=== PATIENT | female | born 1940 | race Caucasian/White ===

== ENCOUNTER → 2017-08-06 08:23 | Outpatient (CLI) | payer MEDICARE, OTHER, SELFPAY ==
--- NOTE | 2017-08-06 08:36 | HPBI_ITS ---
MAMMOGRAPHY - BILATERAL SCREENING REASON FOR EXAM: Female, 76 years old. Routine annual screening examination. PERTINENT HISTORY: History of prior right excisional breast biopsy. TECHNIQUE: Digital bilateral breast dima (3D mammographic acquisition) in the CC and MLO projections. 2-D mediolateral oblique (MLO) and craniocaudad (CC) views of both breasts were obtained. CAD: Full Field Digital Mammography with Computer Added Detection was performed. COMPARISON: Comparison is made with prior study of July 26, 2016 and July 14, 2015. FINDINGS: Breast Composition: The breasts are almost entirely fatty. There are no dominant masses or suspicious calcifications. No other significant abnormalities are identified. There has been no significant change since the prior study. HPBI/SCREENING MAMM (CAD), BILAT IMPRESSION: Stable bilateral screening mammogram. Yearly follow-up mammogram recommended. (A) ASSESSMENT CATEGORY: BIRADS Category 1: Negative. A letter regarding these results will be sent to the patient by the facility within 30 days. Approximately 10% of breast cancers are not detected by mammography. A normal mammogram should not delay biopsy of a clinically suspicious abnormality. [id number] Electronically Signed: Shar Bundy MD at 10:14 EDT Tel [phone], Service support ,
--- NOTE | 2017-08-06 08:53 | BD_ITS ---
STUDY: DUAL ENERGY X-RAY ABSORPTIOMETRY / DXA REASON FOR EXAM: Female, 76 years old. The patient is postmenopausal. No loss of height. TECHNIQUE: Bone Mineral Density (BMD) measurements of lumbar spine and bilateral hips were obtained. COMPARISON: Comparison is made with prior study dated July 14, 2015. FINDINGS: Lumbar Spine (L1-L4): g/cm2 (1.039) / T-score (-1.2) / Z-score (0.6) Findings are suggestive of osteopenia with a moderate fracture risk. Left Femur Total: g/cm2 (0.818) / T-score (-1.5) / Z-score (0.2) Left Femoral Neck: g/cm2 (0.735) / T-score (-2.2) / Z-score (-0.3) Right Femur Total: g/cm2 (0.896) / T-score (-0.9) / Z-score (0.8) Right Femoral Neck: g/cm2 (0.799) / T-score (-1.7) / Z-score (0.2) The T-Scores on the most recent prior examination were: Lumbar Spine (L1-L4): There has been worsening of bone density since the previous examination. Left Femur Total: which represents an improvement of 2.0%. Right Femur Total: which represents an improvement of 5.8%. BD/Dexa Bone Density Study IMPRESSION: The patient is considered osteopenic as outlined below according to World Marvel Organization (WHO) criteria with a moderate fracture risk. There has been improvement of bone density since the previous examination. Reference Information: The T-score is the number of standard deviations above or below the standard which is normal for young adults at their peak bone mineral density. The World Health Organization (WHO) interprets the T-scores as follows: Above -1 Normal bone density Between -1 and -2.5 Osteopenia Equal to / or below -2.5 Osteoporosis As a practical clinical guideline, osteopenia may be graded as follows: Mild -1 through -1.5 Moderate -1.6 through -2.0 Severe -2.1 through -2.4 The Z-score is the number of standard deviations above or below age-matched controls. A Z-score of less than -1.5 would be considered abnormal. References: 1. NIH Osteoporosis and Related Bone Diseases http://www.osteo.org 2. International Society for Clinical Densitometry http://www.iscd.org 3. National Osteoporosis Foundation http://www.nof.org Electronically Signed: Shar Bundy MD at 13:12 EDT Tel [phone], Service support ,
== END ==
PROVIDERS: Family Provider Family Medicine; PCP Family Medicine; Visit Provider Family Medicine
DX: M81.0 Age-related osteoporosis without current pathological fracture (principal); Z12.31 Encounter for screening mammogram for malignant neoplasm of breast
CPT/HCPCS: 77063; 77067; 77080

== ENCOUNTER → 2017-09-18 08:24 | Outpatient (CLI) | payer MEDICARE, OTHER, SELFPAY ==
[2017-09-18 08:31] VITALS: BP 106/66; PULSE 68; RESP 18; TEMP 36.2; BMI 30.2
[2017-09-18] MEDS: Zoledronic Acid 5 MG 100 ML 300 MG IV (08:46)
== END ==
PROVIDERS: Family Provider Family Medicine; PCP Family Medicine; Visit Provider Family Medicine
DX: M81.0 Age-related osteoporosis without current pathological fracture (principal)
CPT/HCPCS: 96365; A4216; J3489

== ENCOUNTER → 2017-10-29 07:58 | Outpatient (CLI) | payer MEDICARE, OTHER, SELFPAY ==
[2017-10-29 12:39] LABS: ALB/GLOB Ratio 0.7 RATIO (0.9-2.4); AST(SGOT) 29 U/L (15-37); Alanine Aminotransfer ALT/SGPT 26 U/L (13-56); Albumin, Serum 3.5 g/dL (3.2-5.0); Alkaline Phosphatase 124 U/L (45-117); Anion Gap 9 (5-15); BUN 16 mg/dL (7-18); BUN/Creat Ratio 18.9 RATIO (10-20); Calcium,Total 9.1 mg/dL (8.5-10.1); Chloride 103 mmol/L (98-107); Creatinine, Serum 0.85 mg/dL (0.55-1.02); EST Glomerular Filtration Rate 70 mL/min (>60); Est Glom Filt Rate - Afr Amer 84 mL/min (>60); Globulin 5.2 g/dL (2.2-4.2); Glucose 82 mg/dL (74-106); Hemoglobin A1c 6.2 % (4.2-6.3); Potassium 3.9 mmol/L (3.5-5.1); Protein, Total 8.7 g/dL (6.4-8.2); Sodium Level 139 mmol/L (136-145); T4 Free Direct 0.98 ng/dL (0.76-1.46); Thyroid Stim Hormone (TSH) 1.93 uIU/mL (0.358-3.74)
[2017-10-30 22:11] LABS: PROEL- A/G Ratio 0.9 (0.7-1.7); PROEL- Albumin 3.7 g/dL (2.9-4.4); PROEL- Alpha-1 Globulin 0.3 g/dL (0.0-0.4); PROEL- Alpha-2 Globulin 1.1 g/dL (0.4-1.0); PROEL- Beta Globulin 1.3 g/dL (0.7-1.3); PROEL- Gamma Globulin 1.5 g/dL (0.4-1.8); PROEL- Globulin, Total 4.1 g/dL (2.2-3.9); PROEL- TOTAL PROTEIN 7.8 g/dL (6.0-8.5)
[2017-10-31 16:09] LABS: PROELU- Albumin, Urine 26.4 % (.); PROELU- Alpha-1-Globulin,Ur 5.3 % (.); PROELU- Alpha-2-Globulin,Ur 11.9 % (.); PROELU- Beta Globulin, Ur 21.5 % (.); PROELU- Gamma Globulin, Ur 34.8 % (.); Total Protein, Ur 5.9 mg/dL (Not Estab.)
== END ==
PROVIDERS: Family Medicine; Visit Provider Family Medicine
DX: R73.03 Prediabetes (principal); E03.9 Hypothyroidism, unspecified; R77.1 Abnormality of globulin
CPT/HCPCS: 36415; 80053; 83036; 84165; 84166; 84439; 84443

== ENCOUNTER → 2018-04-10 06:05 | Outpatient (CLI) | payer MEDICARE, OTHER, SELFPAY ==
[2018-04-10 07:29] LABS: AST(SGOT) 21 U/L (15-37); Alanine Aminotransfer ALT/SGPT 21 U/L (13-56); Albumin, Serum 3.7 g/dL (3.2-5.0); Alkaline Phosphatase 153 U/L (45-117); Bilirubin, Direct 0.14 mg/dL (0.00-0.30); Globulin 5.2 g/dL (2.2-4.2); Protein, Total 8.9 g/dL (6.4-8.2)
[2018-04-10 08:45] LABS: Prothrombin Time (Protime)PT. 13.3 SECONDS (11.7-14.9)
[2018-04-11 11:40] LABS: AFP, Tumor Marker 3.6 ng/mL (0.0-8.3)
== END ==
PROVIDERS: Family Provider Family Medicine; PCP Family Medicine; Referring Provider Internal Medicine Gastroenterology; Visit Provider Internal Medicine Gastroenterology
DX: K74.60 Unspecified cirrhosis of liver (principal)
CPT/HCPCS: 36415; 80076; 82105; 85610

== ENCOUNTER → 2018-08-07 08:27 | Outpatient (CLI) | payer MEDICARE, OTHER, SELFPAY ==
--- NOTE | 2018-08-07 08:31 | BI_ITS ---
MAMMOGRAPHY - BILATERAL SCREENING REASON FOR EXAM: Female, 77 years old. Routine annual screening examination. PERTINENT HISTORY: Non-contributory. Remote right excisional breast biopsy. TECHNIQUE: Digital bilateral breast dima (3D mammographic acquisition) in the CC and MLO projections. 2-D mediolateral oblique (MLO) and craniocaudad (CC) views of both breasts were obtained. CAD: Full Field Digital Mammography with Computer Added Detection was performed. COMPARISON: Comparison is made with prior study dated August 06, 2017 and July 26, 2016. FINDINGS: Breast Composition: The breasts are almost entirely fatty. There are no dominant masses or suspicious calcifications. No other significant abnormalities are identified. There has been no significant change since the prior study. BI/SCREENING MAMM (CAD), BILAT IMPRESSION: Stable bilateral screening mammogram. Yearly follow-up mammogram recommended. (A) ASSESSMENT CATEGORY: BIRADS Category 1: Negative. A letter regarding these results will be sent to the patient by the facility within 30 days. Approximately 10% of breast cancers are not detected by mammography. A normal mammogram should not delay biopsy of a clinically suspicious abnormality. [id number] Electronically Signed: Shar Bundy, at 10:47 EDT , Service support ,
== END ==
PROVIDERS: Family Provider Family Medicine; PCP Family Medicine; Referring Provider Family Medicine; Visit Provider Family Medicine
DX: Z12.31 Encounter for screening mammogram for malignant neoplasm of breast (principal)
CPT/HCPCS: 77063; 77067

== ENCOUNTER → 2018-09-19 07:37 | Outpatient (CLI) | payer MEDICARE, OTHER, SELFPAY ==
[2018-09-19 07:50] VITALS: BP 126/75; PULSE 67; RESP 16; TEMP 36.8; O2SAT 99; BMI 30.7
[2018-09-19] MEDS: Zoledronic Acid 5 MG 100 ML 300 MG IV (07:57)
== END ==
PROVIDERS: Family Provider Family Medicine; PCP Family Medicine; Referring Provider Family Medicine; Visit Provider Family Medicine
DX: M81.0 Age-related osteoporosis without current pathological fracture (principal)
CPT/HCPCS: 96365; A4216; J3489

== ENCOUNTER → 2019-01-29 05:47 | Outpatient (CLI) | payer MEDICARE, OTHER, SELFPAY ==
[2018-09-19 07:50] VITALS: BMI 30.7
[2019-01-29 07:17] LABS: Absolute Lymphocyte Count 2.49 X10^3/uL (0.83-4.51); Absolute Neutrophil Count 5.5 X10^3/uL (2.0-7.7); Basophil# 0.07 X10^3/uL; Basophil% 0.7 % (0-1); Eosinophil# 0.26 X10^3/uL; Eosinophils% 2.8 % (0-5); Hematocrit 43.7 % (37-47); Hemoglobin 14.2 g/dL (12.0-15.0); Lymphocyte # 2.49 X10^3/ul (4.0); Lymphocyte % 26.5 % (19-41); Mean Corp Hgb Conc 32.5 g/dL (32-36); Mean Corpuscular Hgb 30.3 pg (27.0-32.0); Mean Corpuscular Volume 93.2 fL (81-99); Mean Platelet Vol. 10.1 fl (6.2-12.0); Monocyte# 1.05 X10^3/uL; Monocyte% 11.2 % (0-10); NRBC Flagged by Analyzer 0 % (0-5); Neutrophil # 5.48 X10^3/uL (2.7-7.7); Neutrophil % 58.5 % (47-70); Platelet Count 457 K/mm3 (150-450); RBC Distribution Width SD 51.9 fl (35.1-43.9); Red Blood Count 4.69 M/mm3 (4.2-5.4); White Blood Count 9.4 K/mm3 (4.4-11.0)
[2019-01-29 07:54] LABS: Hemoglobin A1c 6.1 % (4.2-6.3)
[2019-01-29 07:59] LABS: ALB/GLOB Ratio 0.7 RATIO (0.9-2.4); AST(SGOT) 20 U/L (15-37); Alanine Aminotransfer ALT/SGPT 19 U/L (13-56); Albumin, Serum 3.5 g/dL (3.2-5.0); Alkaline Phosphatase 137 U/L (45-117); Anion Gap 8 (5-15); BUN 14 mg/dL (7-18); BUN/Creat Ratio 16.3 RATIO (10-20); Bilirubin, Direct 0.14 mg/dL (0.00-0.30); Calcium,Total 9.2 mg/dL (8.5-10.1); Chloride 106 mmol/L (98-107); Cholesterol 158 mg/dL (200); Creatinine, Serum 0.86 mg/dL (0.55-1.02); EST Glomerular Filtration Rate 68 mL/min (>60); Est Glom Filt Rate - Afr Amer 82 mL/min (>60); Free T3 2.4 pg/mL (2.18-3.98); Globulin 4.8 g/dL (2.2-4.2); Glucose 107 mg/dL (74-106); High Density Lipoprotein 53 mg/dL; Potassium 4.1 mmol/L (3.5-5.1); Protein, Total 8.3 g/dL (6.4-8.2); Sodium Level 142 mmol/L (136-145); T4 Free Direct 1.07 ng/dL (0.76-1.46); Thyroid Stim Hormone (TSH) 3.61 uIU/mL (0.358-3.74); Triglycerides 136 mg/dL; Very Low Density Lipoprotein 27 mg/dL (5-40)
[2019-02-01 13:41] LABS: AFP, Tumor Marker 2.8 ng/mL (0.0-8.3)
== END ==
PROVIDERS: Family Provider Family Medicine; PCP Family Medicine; Referring Provider Family Medicine; Visit Provider Family Medicine
DX: R73.03 Prediabetes (principal); E03.9 Hypothyroidism, unspecified; E78.5 Hyperlipidemia, unspecified; Z51.81 Encounter for therapeutic drug level monitoring; K74.5 Biliary cirrhosis, unspecified
CPT/HCPCS: 36415; 80053; 80061; 82105; 82248; 83036; 84439; 84443; 84481; 85025; 85610

== ENCOUNTER → 2019-08-07 05:46 | Outpatient (CLI) | payer MEDICARE, OTHER, SELFPAY ==
[2018-09-19 07:50] VITALS: BMI 30.7
[2019-08-07 06:18] LABS: Absolute Lymphocyte Count 2.23 X10^3/uL (0.83-4.51); Absolute Neutrophil Count 3.9 X10^3/uL (2.0-7.7); Basophil# 0.04 X10^3/uL; Basophil% 0.5 % (0-1); Eosinophil# 0.32 X10^3/uL; Eosinophils% 4.2 % (0-5); Hematocrit 41.7 % (37-47); Hemoglobin 13.5 g/dL (12.0-15.0); Lymphocyte # 2.23 X10^3/ul (4.0); Lymphocyte % 29.6 % (19-41); Mean Corp Hgb Conc 32.4 g/dL (32-36); Mean Corpuscular Volume 92.7 fL (81-99); Mean Platelet Vol. 9.3 fl (6.2-12.0); Monocyte% 13.3 % (0-10); NRBC Flagged by Analyzer 0 % (0-5); Neutrophil # 3.92 X10^3/uL (2.7-7.7); Neutrophil % 52.1 % (47-70); Platelet Count 404 K/mm3 (150-450); RBC Distribution Width CV 15.1 % (11.6-14.6); RBC Distribution Width SD 51.5 fl (35.1-43.9); White Blood Count 7.5 K/mm3 (4.4-11.0)
[2019-08-07 06:32] LABS: International Normalized Ratio 1.1; Prothrombin Time (Protime)PT. 14.1 SECONDS (11.7-14.9)
[2019-08-07 06:42] LABS: ALB/GLOB Ratio 0.8 RATIO (0.9-2.4); AST(SGOT) 20 U/L (15-37); Alanine Aminotransfer ALT/SGPT 17 U/L (13-56); Albumin, Serum 3.5 g/dL (3.2-5.0); Alkaline Phosphatase 124 U/L (45-117); Anion Gap 7 (5-15); BUN 19 mg/dL (7-18); BUN/Creat Ratio 20.2 RATIO (10-20); Bilirubin, Direct 0.15 mg/dL (0.00-0.30); Calcium,Total 9.1 mg/dL (8.5-10.1); Chloride 104 mmol/L (98-107); Cholesterol 170 mg/dL (200); Creatinine, Serum 0.94 mg/dL (0.55-1.02); EST Glomerular Filtration Rate 62 mL/min (>60); Est Glom Filt Rate - Afr Amer 74 mL/min (>60); Free T3 2.8 pg/mL (2.18-3.98); Globulin 4.6 g/dL (2.2-4.2); Glucose 106 mg/dL (74-106); High Density Lipoprotein 54 mg/dL; Potassium 3.7 mmol/L (3.5-5.1); Protein, Total 8.1 g/dL (6.4-8.2); Sodium Level 139 mmol/L (136-145); T4 Free Direct 1.09 ng/dL (0.76-1.46); Thyroid Stim Hormone (TSH) 3.12 uIU/mL (0.358-3.74); Triglycerides 125 mg/dL; Very Low Density Lipoprotein 25 mg/dL (5-40)
[2019-08-07 06:48] LABS: Hemoglobin A1c 6.2 % (4.2-6.3)
[2019-08-08 08:47] LABS: AFP, Tumor Marker 2.9 ng/mL (0.0-8.3)
== END ==
PROVIDERS: PCP Family Medicine; Referring Provider Family Medicine; Visit Provider Family Medicine
DX: R73.03 Prediabetes (principal); K74.5 Biliary cirrhosis, unspecified; E78.5 Hyperlipidemia, unspecified; E03.9 Hypothyroidism, unspecified; R53.83 Other fatigue; Z51.81 Encounter for therapeutic drug level monitoring; R77.1 Abnormality of globulin
CPT/HCPCS: 36415; 80053; 80061; 82105; 82248; 83036; 84439; 84443; 84481; 85025; 85610

== ENCOUNTER → 2019-08-19 10:18 | Outpatient (CLI) | payer MEDICARE, OTHER, SELFPAY ==
[2018-09-19 07:50] VITALS: BMI 30.7
--- NOTE | 2019-08-19 10:22 | BI_ITS ---
MAMMOGRAPHY - BILATERAL SCREENING REASON FOR EXAM: Female, 78 years old. Routine annual screening examination. PERTINENT HISTORY: Non-contributory. TECHNIQUE: Digital bilateral breast valarie (3D mammographic acquisition) in the CC and MLO projections. 2-D mediolateral oblique (MLO) and craniocaudad (CC) views of both breasts were obtained. CAD: Full Field Digital Mammography with Computer Added Detection was performed. COMPARISON: Comparison is made with prior examination dated August 07, 2018. FINDINGS: Breast Composition: The breasts are almost entirely fatty. There are no dominant masses or suspicious calcifications. No other significant abnormalities are identified. There has been no significant change since the prior study. BI/SCREEN MAMM (CAD) W/VALARIE BILAT IMPRESSION: Stable bilateral screening mammogram. Yearly follow-up mammogram recommended. (A) ASSESSMENT CATEGORY: BIRADS Category 1: Negative. A letter regarding these results will be sent to the patient by the facility within 30 days. Approximately 10% of breast cancers are not detected by mammography. A normal mammogram should not delay biopsy of a clinically suspicious abnormality. [id number] Electronically Signed: Shar Bundy, at 14:26 EDT , Service support ,
--- NOTE | 2019-08-19 10:25 | BD_ITS ---
STUDY: DUAL ENERGY X-RAY ABSORPTIOMETRY / DXA REASON FOR EXAM: Female, 78 years old. 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 COMPARISON: Comparison is made with prior study dated August 06, 2017. FINDINGS: Lumbar Spine (L1-L4): g/cm2 (1.059) / T-score (-1.0) / Z-score (0.8) Findings are suggestive of normal bone density with a low fracture risk. Left Femur Total: g/cm2 (0.814) / T-score (-1.5) / Z-score (0.3) Left Femoral Neck: g/cm2 (0.754) / T-score (-2.0) / Z-score (0.0) Right Femur Total: g/cm2 (0.890) / T-score (-0.9) / Z-score (0.8) Right Femoral Neck: g/cm2 (0.816) / T-score (-1.6) / Z-score (0.4) The T-Scores on the most recent prior examination were: Lumbar Spine (L1-L4): There has been improvement of bone density since the previous examination. Left Femur Total: which represents a worsening of 0.5%. Right Femur Total: which represents a worsening of 0.7%. BD/Dexa Bone Density Study IMPRESSION: The patient is considered osteopenic as outlined below according to World Marvel Organization (WHO) criteria with a moderate fracture risk. There has been worsening of bone density since the previous examination. Reference Information: The T-score is the number of standard deviations above or below the standard which is normal for young adults at their peak bone mineral density. The World Health Organization (WHO) interprets the T-scores as follows: Above -1 Normal bone density Between -1 and -2.5 Osteopenia Equal to / or below -2.5 Osteoporosis As a practical clinical guideline, osteopenia may be graded as follows: Mild -1 through -1.5 Moderate -1.6 through -2.0 Severe -2.1 through -2.4 The Z-score is the number of standard deviations above or below age-matched controls. A Z-score of less than -1.5 would be considered abnormal. References: 1. NIH Osteoporosis and Related Bone Diseases http://www.osteo.org 2. International Society for Clinical Densitometry http://www.iscd.org 3. National Osteoporosis Foundation http://www.nof.org Electronically Signed: Shar Bundy, at 11:29 EDT , Service support ,
== END ==
PROVIDERS: PCP Family Medicine; Referring Provider Family Medicine; Visit Provider Family Medicine
DX: Z12.31 Encounter for screening mammogram for malignant neoplasm of breast (principal); M81.0 Age-related osteoporosis without current pathological fracture
CPT/HCPCS: 77063; 77067; 77080

== ENCOUNTER → 2019-09-22 07:41 | Outpatient (CLI) | payer MEDICARE, OTHER, SELFPAY ==
[2018-09-19 07:50] VITALS: BMI 30.7
[2019-09-22 07:49] VITALS: BP 124/80; PULSE 67; RESP 18; TEMP 36; O2SAT 100; BMI 30.4
[2019-09-22] MEDS: 0.9% NaCl Peripheral Flush Adult/Peds IV (08:00)
[2019-09-22] MEDS: 0.9% NaCl IVPB Med Flush (250 mL) 15 ML IV (08:00)
[2019-09-22] MEDS: Zoledronic Acid 5 MG 100 ML 300 MG IV (08:01)
[2019-09-22 08:37] VITALS: BP 109/65; PULSE 61
== END ==
PROVIDERS: PCP Family Medicine; Referring Provider Family Medicine; Visit Provider Family Medicine
DX: M81.0 Age-related osteoporosis without current pathological fracture (principal)
CPT/HCPCS: 96365; J7050; A4216; J3489

== ENCOUNTER → 2019-12-02 10:50 | Outpatient (CLI) | payer MEDICARE, OTHER, SELFPAY ==
[2019-09-22 07:49] VITALS: BMI 30.4
--- NOTE | 2019-12-02 11:00 | RAD_ITS ---
STUDY: X-RAY CHEST REASON FOR EXAM: Female, 79 years old. DYSPNEA TECHNIQUE: 2 views COMPARISON: Prior chest radiograph of 03/31/2010 FINDINGS: The lungs are clear and expanded. There is no demonstrated pleural abnormality. Normal size heart. Normal mediastinum and anastasia. Normal visualized pulmonary arteries. Normal visualized aortic arch and descending thoracic aorta. Normal visualized thoracic spine. Normal visualized ribs, clavicles, and shoulders. There is no demonstrated abnormality of the visualized soft tissue structures of the upper abdomen. RAD/Chest PA and Lateral IMPRESSION: Normal x-ray examination of the chest. Electronically Signed: Geni Davis MD at 17:11 EDT , Service support ,
== END ==
PROVIDERS: PCP Family Medicine; Referring Provider Family Medicine; Visit Provider Family Medicine
DX: R06.00 Dyspnea, unspecified (principal)
CPT/HCPCS: 71046

== ENCOUNTER → 2020-01-14 08:56 | Outpatient (CLI) | payer MEDICARE, OTHER, SELFPAY ==
[2019-09-22 07:49] VITALS: BMI 30.4
--- NOTE | 2020-01-14 13:04 | PFT ---
INTRODUCTION: The patient is a 79-year-old female that presents for pulmonary function studies secondary to a diagnosis of dyspnea. Respiratory therapy reports good patient effort. Bronchodilators were used during testing. INTERPRETATION: Forced expiration spirometry demonstrates no evidence of a large airways obstructive ventilatory defect. There was no significant response to aerosolized bronchodilators. Spirograms are of good quality and plateau normally. The respiratory flow volume loop appears normal. Body plethysmography was performed and reveals lung volumes to be within normal limits. Diffusing capacity by single breath CO is also within normal limits. IMPRESSION: Grossly normal pulmonary function studies.
== END ==
PROVIDERS: PCP Family Medicine; Referring Provider Family Medicine; Visit Provider Family Medicine
DX: R06.00 Dyspnea, unspecified (principal)
CPT/HCPCS: 94060; 94726; 94729

== ENCOUNTER → 2020-01-30 06:57 | Outpatient (CLI) | payer MEDICARE, OTHER, SELFPAY ==
[2019-09-22 07:49] VITALS: BMI 30.4
[2020-01-30 07:50] LABS: Absolute Lymphocyte Count 2.02 X10^3/uL (0.83-4.51); Absolute Neutrophil Count 4.3 X10^3/uL (2.0-7.7); Basophil# 0.07 X10^3/uL; Basophil% 0.9 % (0-1); Eosinophil# 0.23 X10^3/uL; Hematocrit 43.7 % (37-47); Hemoglobin 14.2 g/dL (12.0-15.0); Lymphocyte # 2.02 X10^3/ul (4.0); Lymphocyte % 26.2 % (19-41); Mean Corp Hgb Conc 32.5 g/dL (32-36); Mean Corpuscular Hgb 29.9 pg (27.0-32.0); Mean Platelet Vol. 9.6 fl (6.2-12.0); Monocyte# 1.09 X10^3/uL; Monocyte% 14.1 % (0-10); NRBC Flagged by Analyzer 0 % (0-5); Neutrophil # 4.28 X10^3/uL (2.7-7.7); Neutrophil % 55.5 % (47-70); Platelet Count 465 K/mm3 (150-450); RBC Distribution Width CV 14.7 % (11.6-14.6); RBC Distribution Width SD 50.4 fl (35.1-43.9); Red Blood Count 4.75 M/mm3 (4.2-5.4); White Blood Count 7.7 K/mm3 (4.4-11.0)
[2020-01-30 08:12] LABS: Prothrombin Time (Protime)PT. 12.9 SECONDS (11.7-14.9)
[2020-01-30 08:13] LABS: Partial Thromboplast Time 27.8 Seconds (24.1-36.2)
[2020-01-30 08:30] LABS: AST(SGOT) 19 U/L (15-37); Alanine Aminotransfer ALT/SGPT 21 U/L (13-56); Albumin, Serum 3.8 g/dL (3.2-5.0); Alkaline Phosphatase 132 U/L (45-117); Anion Gap 6 (5-15); BUN 17 mg/dL (7-18); BUN/Creat Ratio 17.5 RATIO (10-20); Bilirubin, Direct 0.17 mg/dL (0.00-0.30); Calcium,Total 9.8 mg/dL (8.5-10.1); Chloride 103 mmol/L (98-107); Cholesterol 197 mg/dL (200); Creatinine, Serum 0.97 mg/dL (0.55-1.02); EST Glomerular Filtration Rate 59 mL/min (>60); Est Glom Filt Rate - Afr Amer 71 mL/min (>60); Free T3 2.5 pg/mL (2.18-3.98); Globulin 5.2 g/dL (2.2-4.2); Glucose 104 mg/dL (74-106); High Density Lipoprotein 62 mg/dL; Potassium 4.1 mmol/L (3.5-5.1); Sodium Level 138 mmol/L (136-145); T4 Free Direct 1.09 ng/dL (0.76-1.46); Triglycerides 108 mg/dL; Very Low Density Lipoprotein 22 mg/dL (5-40)
== END ==
PROVIDERS: PCP Family Medicine; Referring Provider Family Medicine; Visit Provider Family Medicine
DX: K74.5 Biliary cirrhosis, unspecified (principal); R73.03 Prediabetes; E03.9 Hypothyroidism, unspecified; E78.5 Hyperlipidemia, unspecified; Z51.81 Encounter for therapeutic drug level monitoring
CPT/HCPCS: 36415; 80048; 80061; 80076; 82105; 83036; 84439; 84443; 84481; 85025; 85610; 85730

== ENCOUNTER → 2020-08-01 06:01 | Outpatient (CLI) | payer MEDICARE, OTHER, SELFPAY ==
[2019-09-22 07:49] VITALS: BMI 30.4
[2020-08-01 07:01] LABS: Absolute Lymphocyte Count 2.21 X10^3/uL (0.83-4.51); Basophil# 0.08 X10^3/uL; Basophil% 1.1 % (0-1); Eosinophil# 0.35 X10^3/uL; Eosinophils% 4.6 % (0-5); Hematocrit 45.9 % (37-47); Hemoglobin 14.8 g/dL (12.0-15.0); Lymphocyte # 2.21 X10^3/ul (4.0); Lymphocyte % 29.3 % (19-41); Mean Corp Hgb Conc 32.2 g/dL (32-36); Mean Corpuscular Volume 92.9 fL (81-99); Mean Platelet Vol. 10.2 fl (6.2-12.0); Monocyte# 0.89 X10^3/uL; Monocyte% 11.8 % (0-10); NRBC Flagged by Analyzer 0 % (0-5); Neutrophil # 3.98 X10^3/uL (2.7-7.7); Neutrophil % 52.9 % (47-70); Platelet Count 464 K/mm3 (150-450); RBC Distribution Width CV 14.9 % (11.6-14.6); RBC Distribution Width SD 51.2 fl (35.1-43.9); Red Blood Count 4.94 M/mm3 (4.2-5.4); White Blood Count 7.5 K/mm3 (4.4-11.0)
[2020-08-01 07:10] LABS: Prothrombin Time (Protime)PT. 12.6 SECONDS (11.7-14.9)
[2020-08-01 07:11] LABS: Partial Thromboplast Time 26.6 Seconds (24.1-36.2)
[2020-08-01 07:19] LABS: Hemoglobin A1c 6.1 % (3.8-5.6)
[2020-08-01 07:27] LABS: Microalbumin:Creatinine Ratio 4.4 mg/g CRE (<30 mg/g CRE)
[2020-08-01 07:51] LABS: ALB/GLOB Ratio 0.8 RATIO (0.9-2.4); AST(SGOT) 26 U/L (15-37); Alanine Aminotransfer ALT/SGPT 24 U/L (13-56); Albumin, Serum 3.9 g/dL (3.2-5.0); Alkaline Phosphatase 132 U/L (45-117); Anion Gap 6 (5-15); BUN 15 mg/dL (7-18); BUN/Creat Ratio 16.2 RATIO (10-20); Calcium,Total 9.9 mg/dL (8.5-10.1); Chloride 105 mmol/L (98-107); Cholesterol 191 mg/dL (200); Creatinine, Serum 0.93 mg/dL (0.55-1.02); EST Glomerular Filtration Rate 62 mL/min (>60); Est Glom Filt Rate - Afr Amer 75 mL/min (>60); Free T3 2.2 pg/mL (2.18-3.98); Globulin 5.2 g/dL (2.2-4.2); Glucose 109 mg/dL (74-106); High Density Lipoprotein 56 mg/dL; Protein, Total 9.1 g/dL (6.4-8.2); Sodium Level 139 mmol/L (136-145); T4 Free Direct 1.08 ng/dL (0.76-1.46); Thyroid Stim Hormone (TSH) 3.39 uIU/mL (0.358-3.74); Triglycerides 145 mg/dL; Very Low Density Lipoprotein 29 mg/dL (5-40)
[2020-08-02 11:14] LABS: AFP, Tumor Marker 2.5 ng/mL (0.0-8.3)
== END ==
PROVIDERS: PCP Family Medicine; Referring Provider Family Medicine; Visit Provider Family Medicine
DX: E03.9 Hypothyroidism, unspecified (principal); K74.5 Biliary cirrhosis, unspecified; R73.03 Prediabetes; Z51.81 Encounter for therapeutic drug level monitoring; M34.1 CR(E)ST syndrome; E78.5 Hyperlipidemia, unspecified
CPT/HCPCS: 36415; 80053; 80061; 82043; 82105; 82570; 83036; 84439; 84443; 84481; 85025; 85610; 85730

== ENCOUNTER → 2020-08-24 07:22 | Outpatient (CLI) | payer MEDICARE, OTHER, SELFPAY ==
[2019-09-22 07:49] VITALS: BMI 30.4
--- NOTE | 2020-08-24 07:25 | BI_ITS ---
MAMMOGRAPHY - BILATERAL SCREENING REASON FOR EXAM: Female, 79 years old. Routine annual screening examination. PERTINENT HISTORY: Non-contributory. Remote right excisional breast biopsy. TECHNIQUE: Digital bilateral breast valarie (3D mammographic acquisition) in the CC and MLO projections. 2-D mediolateral oblique (MLO) and craniocaudad (CC) views of both breasts were obtained. CAD: Full Field Digital Mammography with Computer Added Detection was performed. COMPARISON: Comparison is made with prior study dated 08/19/2019 and 08/07/2018. FINDINGS: Breast Composition: The breasts are almost entirely fatty. There are no dominant masses or suspicious calcifications. Stable bilateral secretory calcifications. No other significant abnormalities are identified. There has been no significant change since the prior study. BI/SCRN MAMM (CAD)W/VALARIE BILAT IMPRESSION: Stable bilateral screening mammogram. Yearly follow-up mammogram recommended. (A) ASSESSMENT CATEGORY: BIRADS Category 2: Benign. A letter regarding these results will be sent to the patient by the facility within 30 days. Approximately 10% of breast cancers are not detected by mammography. A normal mammogram should not delay biopsy of a clinically suspicious abnormality. [id number] Electronically Signed: Shar Bundy MD at 8:40 EDT , Service support ,
== END ==
PROVIDERS: PCP Family Medicine; Referring Provider Family Medicine; Visit Provider Family Medicine
DX: Z12.31 Encounter for screening mammogram for malignant neoplasm of breast (principal)
CPT/HCPCS: 77063; 77067

== ENCOUNTER → 2020-09-22 07:41 | Outpatient (CLI) | payer MEDICARE, OTHER, SELFPAY ==
[2019-09-22 07:49] VITALS: BMI 30.4
[2020-09-22 07:55] VITALS: BP 115/50; PULSE 64; RESP 16; TEMP 35.8; O2SAT 100; BMI 30.2
[2020-09-22] MEDS: Zoledronic Acid 5 MG 100 ML 300 MG IV (08:19)
[2020-09-22] MEDS: 0.9% NaCl Peripheral Flush Adult/Peds IV (08:19)
[2020-09-22 08:39] VITALS: BP 108/52; PULSE 57; RESP 16; TEMP 36.2
== END ==
PROVIDERS: PCP Family Medicine; Referring Provider Family Medicine; Visit Provider Family Medicine
DX: M81.0 Age-related osteoporosis without current pathological fracture (principal)
CPT/HCPCS: 96365; A4216; J3489

== ENCOUNTER → 2021-01-30 05:58 | Outpatient (CLI) | payer MEDICARE, OTHER, SELFPAY ==
[2021-01-30 07:26] LABS: Absolute Lymphocyte Count 2.18 X10^3/uL (0.83-4.51); Absolute Neutrophil Count 3.9 X10^3/uL (2.0-7.7); Basophil# 0.06 X10^3/uL; Basophil% 0.8 % (0-1); Eosinophil# 0.19 X10^3/uL; Eosinophils% 2.6 % (0-5); Hematocrit 42.3 % (37-47); Hemoglobin 13.4 g/dL (12.0-15.0); Lymphocyte # 2.18 X10^3/ul (0.83-4.51); Lymphocyte % 29.8 % (19-41); Mean Corp Hgb Conc 31.7 g/dL (32-36); Mean Corpuscular Hgb 29.8 pg (27.0-32.0); Mean Platelet Vol. 10.4 fl (6.2-12.0); Monocyte# 0.96 X10^3/uL; Monocyte% 13.1 % (0-10); NRBC Flagged by Analyzer 0 % (0-5); Neutrophil % 53.4 % (47-70); Platelet Count 425 K/mm3 (150-450); RBC Distribution Width CV 15.6 % (11.6-14.6); RBC Distribution Width SD 53.8 fl (35.1-43.9); White Blood Count 7.3 K/mm3 (4.4-11.0)
[2021-01-30 07:37] LABS: International Normalized Ratio 1.1; Partial Thromboplast Time 28.9 Seconds (24.1-36.2); Prothrombin Time (Protime)PT. 13.5 SECONDS (11.7-14.9)
[2021-01-30 08:25] LABS: ALB/GLOB Ratio 0.6 RATIO (0.9-2.4); AST(SGOT) 21 U/L (15-37); Alanine Aminotransfer ALT/SGPT 19 U/L (13-56); Albumin, Serum 3.2 g/dL (3.2-5.0); Alkaline Phosphatase 127 U/L (45-117); Anion Gap 9 (5-15); BUN 14 mg/dL (7-18); BUN/Creat Ratio 16.5 RATIO (10-20); Calcium,Total 9.4 mg/dL (8.5-10.1); Chloride 104 mmol/L (98-107); Cholesterol 162 mg/dL (200); Creatinine, Serum 0.85 mg/dL (0.55-1.02); EST Glomerular Filtration Rate 69 mL/min (>60); Est Glom Filt Rate - Afr Amer 84 mL/min (>60); Free T3 2.3 pg/mL (2.18-3.98); Globulin 5.1 g/dL (2.2-4.2); Glucose 96 mg/dL (74-106); High Density Lipoprotein 54 mg/dL; Potassium 3.9 mmol/L (3.5-5.1); Protein, Total 8.3 g/dL (6.4-8.2); Sodium Level 140 mmol/L (136-145); T4 Free Direct 1.07 ng/dL (0.76-1.46); Thyroid Stim Hormone (TSH) 4.12 uIU/mL (0.358-3.74); Triglycerides 115 mg/dL; Very Low Density Lipoprotein 23 mg/dL (5-40)
[2021-01-30 08:34] LABS: Hemoglobin A1c 6.1 % (3.8-5.6)
[2021-01-31 14:40] LABS: AFP, Tumor Marker 2.4 ng/mL (0.0-8.3)
== END ==
PROVIDERS: PCP Family Medicine; Referring Provider Family Medicine; Visit Provider Family Medicine
DX: E03.9 Hypothyroidism, unspecified (principal); K74.5 Biliary cirrhosis, unspecified; R73.03 Prediabetes; Z51.81 Encounter for therapeutic drug level monitoring; M34.1 CR(E)ST syndrome; E78.5 Hyperlipidemia, unspecified
CPT/HCPCS: 36415; 80053; 80061; 82105; 83036; 84439; 84443; 84481; 85025; 85610; 85730

== ENCOUNTER 2021-02-24 12:40 | Emergency (ER) | payer MEDICARE, OTHER, SELFPAY ==
[2021-02-24 12:41] VITALS: BP 125/76; PULSE 20; RESP 104; TEMP 36.3; O2SAT 99; BMI 29.2
--- NOTE | 2021-02-24 12:59 | EKG12_ITS ---
Test Reason : Blood Pressure : / mmHG Vent. Rate : 078 BPM Atrial Rate : 078 BPM P-R Int : 156 ms QRS Dur : 078 ms QT Int : 380 ms P-R-T Axes : 061 -12 022 degrees QTc Int : 433 ms Normal sinus rhythm Normal ECG Confirmed by EVELIO VERA, FAITH ([id number]), medical editor JENNY MCFARLANE ([id number]) on 02/28/2021 10:36:07 AM Referred By: MEGAN Confirmed By:FAITH FRASER MD
--- NOTE | 2021-02-24 13:01 | EX.ED.DYSGE1 ---
HPI History of Present Illness Chief Complaint: General Illness Informant: patient and spouse/S.O. Onset/Context/Timing Onset: Hours (1.5-2 hrs prior to eval) Context: Sudden Onset Timing: Continuous (but feels better now that I'm resting here) Current Severity: Gone Maximum Severity: Severe Worsened by: nothing in particular Relieved by: nothing in particular Associated Symptoms Associated Symptoms: weak all over, back discomfort Narrative Narrative: Patient states this morning she was standing in her kitchen at the stove making a meal, she suddenly started feeling short of breath, broke out in a sweat, and felt very weak like she needed some help to stand. She did not fall. She did not feel lightheaded or near syncopal. She denies any palpitations or chest discomfort, nausea, vomiting, or abdominal pain. She thinks she has some vague discomfort in her upper back and points to the base of her neck, and then states she thinks maybe it was discomfort in her low back and she is unsure. She states it is not bothering her now and she feels better now. Patient states she had an episode like this 3 weeks ago, it was short-lived and went away on its own. She states she did not bring herself to medical attention because of that, and since then had a trip to and from [place]. She denies any history of DVT or PE. No recent leg pain or swelling. No known history of heart disease. Denies any recent illness. [facility] Medical History High cholesterol Hypothyroidism Home Medications aspirin 81 mg PO DAILY@0800 09/08/13 [History Last Taken Unknown] pravastatin 40 mg PO DAILY 09/08/13 [History Last Taken Unknown] ursodiol [Mello Forte] 5 mg PO TID 09/08/13 [History Last Taken Unknown] zoledronic utin-pdimwjga-atclw 5 mg IV UD 09/08/13 [History Last Taken Unknown] cyclosporine [Restasis] 1 drp EACH EYE BID 02/05/14 [History Last Taken Unknown] Ie-V4-rwb-azld-sla-oacq-boron [Caltrate 600+D3+Min Chew Tab] 1 ea PO BID 09/09/14 [History Last Taken Unknown] vitamins A,C,C-ohow-lfgdiq [Preservision Areds Softgel] 1 ea PO BID 09/09/14 [History Last Taken Unknown] levothyroxine 25 mcg PO DAILY 09/17/16 [History Last Taken Unknown] Allergy/AdvReac Type Severity Reaction Status Date / Time No Known Allergies Allergy Verified 02/24/21 12:44 Social History Smoking Status: Never smoker ROS ROS ED Constitutional Constitutional ED: Reports excessive sweating and malaise; Denies chills or fever(s) Eyes Eyes: Denies change in vision or diplopia ENT ENT ED: Denies rhinorrhea or sore throat Cardiovascular Cardiovascular: Denies chest pain or palpitations Respiratory/Chest Respiratory/Chest: Reports dyspnea; Denies cough Gastrointestinal Gastrointestinal: Denies abdominal pain, diarrhea, nausea or vomiting Genitourinary Genitourinary ED: Denies dysuria or hematuria Musculoskeletal Musculoskeletal: Reports back pain; Denies neck pain Integumentary Denies abscess or rash Neurologic Neurologic: Denies headache(s), paresthesias or weakness Psychiatric Psychiatric: Denies anxiety or suicidal thoughts EXAM Physical Exam Const Vital Signs: 02/24/21 12:41 02/24/21 12:55 02/24/21 13:04 Temperature 97.4 F L Temperature Source Temporal Pulse Rate 20 L Respiratory Rate 104 H Respiratory Pattern Normal Blood Pressure 125/76 H Blood Pressure Mean 92 Pulse Ox 99 Oxygen Delivery Method Room Air Room Air Positive well nourished and well developed General Appearance ED: well developed and NAD HEENT Reports moist mucous membranes normocephalic and atraumatic Eyes PERRL and EOMs intact bilaterally Neck full ROM and supple Resp normal respiratory effort and clear to auscultation bilaterally Cardio regular rate, regular rhythm, no murmurs and no JVD Cardio Narrative: Mild resting tachycardia GI non-tender and non-distended Auscultation: normoactive bowel sounds Palpation: soft Back/Spine no CVA tenderness General Back: other FROM Extremity normal to inspection and no calf tenderness General Extremety ED: Negative for edema, pulses abnormal or tenderness General Extremity: Negative for edema or pulses abnormal Neuro oriented x3, CN's II-XII intact bilaterally and no sensory deficits noted Sensorium / Orientation: awake and alert Motor Exam: strength 5/5 throughout Skin no rashes or lesions noted and no wounds MDM MDM MDM Narrative Medical decision making narrative: Work-up shows an elevated D-dimer, EKG and troponin are normal as are the rest of her labs as noted below. Her chest x-ray was unremarkable. I do not think she needs to be tested for Covid, that is not likely here, plus she was vaccinated against it. She was sent for CT angiography of the chest, it is normal as below. It also shows no evidence of pulmonary embolism. The patient remained asymptomatic here in emergency department and maintained normal vital signs, her mild tachycardia resolved. I discussed with cardiology Dr. Kuhn, who agrees that a transient nonlethal dysrhythmia is possible and an outpatient Holter for 24 hours would be a reasonable first step and have the patient follow-up. I am checking with respiratory to see if we have one available, and if not we will have the patient come back and apply it to her when we get 1 and she can follow-up then. Lab Data Attestation: I reviewed the patient's lab results. Labs: Laboratory Results - last 24 hr 02/24/21 02/24/21 02/24/21 13:00 13:00 13:00 WBC 9.5 RBC 4.71 Hgb 14.1 Hct 43.1 MCV 91.5 MCH 29.9 MCHC 32.7 RDW Std Deviation 51.9 H RDW Coeff of Ritu 15.4 H Plt Count 403 MPV 9.3 Immature Gran % (Auto) 0.600 Neut % (Auto) 74.5 H Lymph % (Auto) 14.5 L Caldwell % (Auto) 9.2 Eos % (Auto) 0.8 Baso % (Auto) 0.4 Absolute Neuts (auto) 7.1 Absolute Lymphs (auto) 1.37 Nucleated RBC % 0 D-Dimer Quant (PE/DVT) 1.24 H* Sodium 138 Potassium 3.7 Chloride 104 Carbon Dioxide 28.0 Anion Gap 6 BUN 14 Creatinine 1.21 H Estim Creat Clear Calc 35.87 Est GFR (MDRD) Af Amer 55 L Est GFR (MDRD) Non-Af 46 L BUN/Creatinine Ratio 11.6 Glucose 139 H Calcium 9.2 Troponin I High Sens 7 Radiography Diagnostic Testing: Clinical Impression(s) from Imaging Studies Chest CTA 02/24/21 13:48 IMPRESSION: No evidence of pulmonary embolism. Electronically Signed: Shar Bundy MD at 15:02 EDT , Service support , Chest X-Ray 02/24/21 14:18 IMPRESSION: No acute abnormality is seen. Electronically Signed: Shar Bundy MD at 15:01 EDT , Service support , EKG Initial EKG: Attestation: I personally reviewed and interpreted this EKG as follows: Interpretation: Sinus Rhythm (78) and No Acute Injury Pattern Comments: Normal EKG Prior: Unchanged Discharge Plan Triage Chief Complaint: General Illness ED Provider: Cristi Peterson Dx/Rx/DC Orders Clinical Impression: Acute dyspnea Instructions: ED Dyspnea Prescriptions: No Action pravastatin 40 MG tablet 40 mg PO DAILY RF: 0 aspirin 81 MG Tab.Chew 81 mg PO DAILY@0800 RF: 0 ursodiol [MELLO Forte] 500 MG tablet 5 mg PO TID RF: 0 zoledronic tnzg-yrjdhvkv-ylbpk 5 MG/100 ML Infus..Btl 5 mg IV UD RF: 0 cyclosporine [Restasis] 1 EACH Droperette 1 drp Each Eye BID RF: 0 vitamins A,C,A-plkp-ywgalz [PreserVision AREDS] 1 EACH capsule 1 ea PO BID RF: 0 Bv-O0-xly-lxmi-xwd-udvk-boron [Caltrate 600-D Plus Minerals] 1 EACH Tab.Chew 1 ea PO BID RF: 0 levothyroxine 25 MCG tablet 25 mcg PO DAILY RF: 0 Primary Care Provider: Marsha Cedillo Referrals: Adam Kuhn MD [STAFF PHYSICIAN] - (Call for appointment to be seen after you obtain Holter monitor and turn it in, so results will be available at your appointment) Marsha Cedillo DO [Primary Care Provider] - Disposition Disposition: Home, Self Care
[2021-02-24 13:09] LABS: Absolute Lymphocyte Count 1.37 X10^3/uL (0.83-4.51); Absolute Neutrophil Count 7.1 X10^3/uL (2.0-7.7); Basophil# 0.04 X10^3/uL; Basophil% 0.4 % (0-1); Eosinophil# 0.08 X10^3/uL; Eosinophils% 0.8 % (0-5); Hematocrit 43.1 % (37-47); Hemoglobin 14.1 g/dL (12.0-15.0); Lymphocyte # 1.37 X10^3/ul (0.83-4.51); Lymphocyte % 14.5 % (19-41); Mean Corp Hgb Conc 32.7 g/dL (32-36); Mean Corpuscular Hgb 29.9 pg (27.0-32.0); Mean Corpuscular Volume 91.5 fL (81-99); Mean Platelet Vol. 9.3 fl (6.2-12.0); Monocyte# 0.87 X10^3/uL; Monocyte% 9.2 % (0-10); NRBC Flagged by Analyzer 0 % (0-5); Neutrophil # 7.05 X10^3/uL (2.7-7.7); Neutrophil % 74.5 % (47-70); Platelet Count 403 K/mm3 (150-450); RBC Distribution Width CV 15.4 % (11.6-14.6); RBC Distribution Width SD 51.9 fl (35.1-43.9); Red Blood Count 4.71 M/mm3 (4.2-5.4); White Blood Count 9.5 K/mm3 (4.4-11.0)
[2021-02-24] MEDS: 0.9% Normal Saline 1,000 ML 150 ML IV (13:09)
[2021-02-24] MEDS: Aspirin 81 MG TAB.CHEW 324 MG PO (13:09)
[2021-02-24 13:22] LABS: D-Dimer Quantitative (DVT/PE) 1.24 FEU/ug/m (0.27-0.49)
[2021-02-24 13:34] LABS: Anion Gap 6 (5-15); BUN 14 mg/dL (7-18); BUN/Creat Ratio 11.6 RATIO (10-20); Calcium,Total 9.2 mg/dL (8.5-10.1); Chloride 104 mmol/L (98-107); Creatinine, Serum 1.21 mg/dL (0.55-1.02); EST Glomerular Filtration Rate 46 mL/min (>60); Est Glom Filt Rate - Afr Amer 55 mL/min (>60); Estimated Creatinine Clearance 35.87 ml/min; Glucose 139 mg/dL (74-106); Potassium 3.7 mmol/L (3.5-5.1); Sodium Level 138 mmol/L (136-145); Troponin-I HS 7 pg/mL (3.0-54.0)
--- NOTE | 2021-02-24 13:48 | CT_ITS ---
STUDY: CTA CHEST REASON FOR EXAM: Female, 80 years old. Sob, elevated d-dimer RADIATION DOSAGE (If Supplied By Facility): CTDIvol = ( 11.32 ) mGy, DLP = ( 471.03 ) mGycm TECHNIQUE: The examination was performed with the intravenous administration of IV 100mL Isovue-370. Post-processing of the angiographic images was performed, with multiplanar reformation and 3D reconstruction. Individualized dose optimization techniques were used for this CT. COMPARISON: Comparison is made with prior chest radiograph done earlier in the day. FINDINGS: Normal enhancement of the main pulmonary artery and right and left pulmonary arteries. Normal enhancement of the bilateral peripheral pulmonary arteries. There is no demonstrated pulmonary embolism. Normal thoracic aorta and visualized great vessels. There is no demonstrated aortic dissection. There are calcifications of the coronary arteries. Normal mediastinum. Normal hilar regions. Normal visualized trachea and bronchi. The lungs are well expanded. Calcified granuloma in the superior segment of the right lower lobe. Normal pleura. Normal chest wall structures. There are degenerative changes of thoracic spine. Calcified splenic granulomas. CT/CTA Chest W/WO Contrast IMPRESSION: No evidence of pulmonary embolism. Electronically Signed: Shar Bundy MD at 15:02 EDT , Service support ,
--- NOTE | 2021-02-24 14:18 | RAD_ITS ---
STUDY: X-RAY CHEST REASON FOR EXAM: Female, 80 years old. Dyspnea TECHNIQUE: Single AP portable view of the chest. COMPARISON: Comparison is made with prior study dated 12/02/2019. FINDINGS: EKG electrodes are seen. The lungs are clear and expanded. There is no demonstrated pleural abnormality. Normal size heart. Normal mediastinum and anastasia. Normal visualized pulmonary arteries. There is atherosclerotic tortuosity of the aortic arch and descending thoracic aorta. There are diffuse degenerative changes of the visualized thoracic spine. Normal visualized ribs, clavicles, and shoulders. There is no demonstrated abnormality of the visualized soft tissue structures of the upper abdomen. RAD/Chest 1 View (Portable) IMPRESSION: No acute abnormality is seen. Electronically Signed: Shar Bundy MD at 15:01 EDT , Service support ,
[2021-02-24 15:53] VITALS: BP 109/67; PULSE 70; RESP 15; O2SAT 97
== END 2021-02-24 16:09 | disposition home or self-care (01) ==
PROVIDERS: Emergency Provider Emergency Medicine; PCP Family Medicine
DX: R06.00 Dyspnea, unspecified (principal); R79.89 Other specified abnormal findings of blood chemistry; E03.9 Hypothyroidism, unspecified; E78.00 Pure hypercholesterolemia, unspecified; Z79.82 Long term (current) use of aspirin; Z79.899 Other long term (current) drug therapy
CPT/HCPCS: 71045; 71275; 80048; 84484; 85025; 85379; 93005; 96360; 96361; 99284; J7030; Q9967; A4216

== ENCOUNTER → 2021-03-02 09:14 | Outpatient (CLI) | payer MEDICARE, OTHER, SELFPAY | PROVIDERS: PCP Family Medicine; Referring Provider Emergency Medicine; Visit Provider Emergency Medicine | DX: R06.00 Dyspnea, unspecified (principal) | CPT/HCPCS: 93225; 93226 ==

== ENCOUNTER → 2021-04-24 14:25 | Outpatient (CLI) | payer MEDICARE, OTHER, SELFPAY ==
[2021-04-24 17:43] LABS: Partial Thromboplast Time 27.7 Seconds (24.1-36.2); Prothrombin Time (Protime)PT. 12.8 SECONDS (11.7-14.9)
[2021-04-24 17:49] LABS: Vitamin D,25 Hydroxy 38.1 ng/mL
[2021-04-24 18:00] LABS: AST(SGOT) 22 U/L (15-37); Alanine Aminotransfer ALT/SGPT 20 U/L (13-56); Albumin, Serum 3.6 g/dL (3.2-5.0); Alkaline Phosphatase 106 U/L (45-117); Bilirubin, Direct 0.11 mg/dL (0.00-0.30); GGTP 18 U/L (5-55); Globulin 4.7 g/dL (2.2-4.2); Protein, Total 8.3 g/dL (6.4-8.2)
== END ==
PROVIDERS: PCP Family Medicine; Referring Provider Internal Medicine Gastroenterology; Visit Provider Internal Medicine Gastroenterology
DX: K74.5 Biliary cirrhosis, unspecified (principal)
CPT/HCPCS: 36415; 80076; 82306; 82977; 85610; 85730

== ENCOUNTER → 2021-05-02 06:47 | Outpatient (CLI) | payer MEDICARE, OTHER, SELFPAY ==
--- NOTE | 2021-05-02 06:48 | US_ITS ---
STUDY: ABDOMINAL ULTRASOUND - RIGHT UPPER QUADRANT REASON FOR VISIT: Female, 80 years old PBC TECHNIQUE: Ultrasound evaluation of the right upper quadrant was performed with real-time and static rubio-scale imaging. TECHNICAL QUALITY: Adequate. COMPARISON: Comparison is made with prior study dated 04/12/2016. FINDINGS: Liver: The liver measures 15 cm. There is increased echogenicity consistent with fatty infiltration. The bile ducts are within normal limits. There is hepatic color flow. The direction of portal flow is hepatopetal. There is no demonstrated mass lesion. Gallbladder: Normal distended gallbladder. The gallbladder wall measures 2.1 mm. There is a negative sonographic Marie''s sign. There is no pericholecystic fluid. There are no gallstones. Common Bile Duct (C.B.D.): The common bile duct measures 4.5 mm. Pancreas: Normal size of the head, body and tail of the pancreas. There is increased echogenicity of the pancreas. There is no demonstrated pancreatic mass or cyst. Right Kidney: Normal size of the right kidney. The right kidney measures 10.7 cm x 4.7 cm x 4.1 cm. Normal renal cortex. The right cortex measures 1.1 cm. There is no demonstrated renal mass or cyst. There is no right hydronephrosis. IMPRESSION: Stable heterogeneous echotexture of the liver. No focal lesion is seen. Electronically Signed: Shar Bundy MD at 9:00 EST , Service support , STUDY: ABDOMINAL ULTRASOUND - ELASTOGRAPHY REASON FOR VISIT: Female, 80 years old. PBC. TECHNIQUE: Liver stiffness measurements were obtained on a Satmex 85 ultrasound machine using a CA 1-7 probe following the SRU guidelines. 3 measurements were obtained using a 2-D-SWE method. The IQR/M was 20% suggesting a quality data set. TECHNICAL QUALITY: Adequate. COMPARISON: Comparison is made with prior sonogram of the right upper quadrant done earlier in the day. FINDINGS: Liver: Stable heterogeneous appearance of the liver parenchyma. Median liver stiffness measured 7 kPa. US/Abdomen Limited IMPRESSION: Liver stiffness measures 7 kPa compatible with F2 Metavir score. Electronically Signed: Shar Bundy MD at 9:01 EST , Service support ,
== END ==
PROVIDERS: PCP Family Medicine; Referring Provider Internal Medicine Gastroenterology; Visit Provider Internal Medicine Gastroenterology
DX: K74.5 Biliary cirrhosis, unspecified (principal)
CPT/HCPCS: 76705; 76981

== ENCOUNTER 2021-06-12 06:45 | Outpatient (CLI) | payer MEDICARE, OTHER, SELFPAY ==
--- NOTE | 2021-06-12 06:47 | ECHOCS_ITS ---
Reason For Study: Dyspnea/SOB Procedure This was a 2D Doppler, Color Flow transthoracic echocardiogram. The study was technically difficult. Contrast injection was performed. Exam performed in department. Left Ventricle Normal LV size. Left ventricular systolic function is normal. The estimated ejection fraction is 60 %. Stage 1 diastolic dysfunction. No regional wall motion abnormalities noted. Right Ventricle Normal RV size. Normal systolic function. Atria Normal left atrium. Normal right atrium. Mitral Valve Normal mitral valve. Mild (1+) mitral valve insufficiency. Tricuspid Valve Normal tricuspid valve. Mild tricuspid valve insufficiency. Pulmonary artery systolic pressure is 26 mmHg. Aortic Valve Trisinus/trileaflet aortic valve. Mild focal aortic valve calcification. Pulmonic Valve Normal pulmonic valve. Great Vessels Normal aortic root. Pericardium/Pleural No pericardial effusion. Medication 22 gauge I.V. with prn adaptor inserted into right arm. Diluted definity 3ml given slow IV push to enhance endocardial definition. MMode/2D Measurements & Calculations LVIDd: 4.3 cm IVSd: 1.1 cm LA dimension: 3.0 cm LVIDs: 2.7 cm LVPWd: 0.98 cm RVDd: 2.8 cm FS: 35.8 % LAV(MOD-bp): 22.5 ml LA A4 area: 12.4 cm2 RA A4 area: 13.1 cm2 LAV(MOD-bp) Indexed: 11.9 ml/m2 LAV(MOD-sp2): 16.3 ml LAV(MOD-sp4): 25.6 ml Time Measurements MV dec time: 0.27 sec Doppler Measurements & Calculations MV E max ac: 60.5 cm/sec Lat Peak E' Ac: 6.0 cm/sec Med Peak E' Ac: 7.2 cm/sec MV A max ac: 77.0 cm/sec E/E' lat: 10.1 E/E' med: 8.4 MV E/A: 0.79 MV V2 max: 79.3 cm/sec MV P1/2t max ac: 66.9 cm/sec Ao V2 max: 110.2 cm/sec MV max P.5 mmHg MV P1/2t: 89.0 msec Ao max P.9 mmHg MV V2 mean: 45.0 cm/sec MV dec slope: 220.0 cm/sec2 MV mean P.93 mmHg MV V2 VTI: 20.1 cm MVA(P1/2t): 2.5 cm2 LV V1 max: 84.4 cm/sec PA V2 max: 67.4 cm/sec TR max ac: 236.9 cm/sec LV V1 max P.9 mmHg TR max P.4 mmHg ECHO/Echo Complete W/ Contrast Interpretation Summary Normal LV size. Left ventricular systolic function is normal. The estimated ejection fraction is 60 %. Stage 1 diastolic dysfunction. Pulmonary artery systolic pressure is 26 mmHg. Mild (1+) mitral valve insufficiency. Ordering Physician: Adam Kuhn Referring Physician: Marsha Cedillo Performed By: José Luis Sheriff RCS
--- NOTE | 2021-06-12 10:07 | STRESSREP ---
Stress Test Report Exercise myocardial perfusion stress test. Reason for evaluation dyspnea on exertion. Stress protocol: Resting EKG demonstrates normal sinus rhythm with a rate of 59 bpm normal intervals are noted resting blood pressure is 118/80 mmHg. The patient exercised according to the regular Malcom protocol for total duration of 3 minutes. The maximum heart rate attained was 157 bpm which was 110% of max impact at heart rate the maximum workload was 4.6 metabolic equivalents. At rest there were no ST changes noted to suggest ischemia and at peak exercise no EKG changes were noted to suggest ischemia. Occasional premature atrial complexes were noted. The test was terminated due to dyspnea on exertion and fatigue. The peak blood pressure was 140/60 mmHg. Myocardial perfusion protocol. 11.5 mCi of technetium 99m sestamibi was injected at rest. The patient exercised according to regular Malcom protocol for 3 minutes and at peak exercise 33.1 mCi of technetium 99m sestamibi was injected stress images were obtained stress and rest images were reconstructed and compared in the short axis vertical long and horizontal long axis. Gated images were also obtained. Perfusion SPECT analysis: Review of the stress images demonstrate normal uptake of tracer noted in all areas of the myocardium. The resting images similarly demonstrate normal uptake of tracer noted in all areas of the myocardium. No areas of reversibility are noted to suggest ischemia and no previous infarct is noted. Gated SPECT analysis: The gated ejection fraction is 79%. Conclusion: Normal exercise myocardial perfusion stress test at a low workload. This can affect sensitivity for detection of ischemia. Moderate functional aerobic impairment noted. No arrhythmias noted.
== END 2021-06-12 23:59 | disposition home or self-care (01) ==
LOC: CVS 06:46
PROVIDERS: PCP Family Medicine; Referring Provider Internal Medicine Cardiovascular Disease; Visit Provider Internal Medicine Cardiovascular Disease
DX: R06.00 Dyspnea, unspecified (principal)
CPT/HCPCS: 78452; 93017; 93306; A9500; Q9957; A4216; C8929

== ENCOUNTER 2021-07-17 05:46 | Outpatient (CLI) | payer MEDICARE, OTHER, SELFPAY ==
[2021-07-17 07:18] LABS: Absolute Lymphocyte Count 1.99 X10^3/uL (0.83-4.51); Absolute Neutrophil Count 4.1 X10^3/uL (2.0-7.7); Basophil# 0.07 X10^3/uL; Eosinophil# 0.22 X10^3/uL; Hematocrit 43.9 % (37-47); Hemoglobin 14.6 g/dL (12.0-15.0); Lymphocyte # 1.99 X10^3/ul (0.83-4.51); Lymphocyte % 27.1 % (19-41); Mean Corp Hgb Conc 33.3 g/dL (32-36); Mean Corpuscular Hgb 30.7 pg (27.0-32.0); Mean Corpuscular Volume 92.2 fL (81-99); Mean Platelet Vol. 10.2 fl (6.2-12.0); Monocyte% 12.3 % (0-10); NRBC Flagged by Analyzer 0 % (0-5); Neutrophil # 4.14 X10^3/uL (2.7-7.7); Neutrophil % 56.3 % (47-70); Platelet Count 451 K/mm3 (150-450); RBC Distribution Width SD 51.5 fl (35.1-43.9); Red Blood Count 4.76 M/mm3 (4.2-5.4); White Blood Count 7.3 K/mm3 (4.4-11.0)
[2021-07-17 07:29] LABS: International Normalized Ratio 1.1; Prothrombin Time (Protime)PT. 13.3 SECONDS (11.7-14.9)
[2021-07-17 07:30] LABS: Partial Thromboplast Time 26.8 Seconds (24.1-36.2)
[2021-07-17 08:04] LABS: ALB/GLOB Ratio 0.8 RATIO (0.9-2.4); AST(SGOT) 21 U/L (15-37); Alanine Aminotransfer ALT/SGPT 16 U/L (13-56); Albumin, Serum 3.7 g/dL (3.2-5.0); Alkaline Phosphatase 133 U/L (45-117); Anion Gap 5 (5-15); BUN 17 mg/dL (7-18); BUN/Creat Ratio 17.7 RATIO (10-20); Calcium,Total 9.5 mg/dL (8.5-10.1); Chloride 104 mmol/L (98-107); Cholesterol 187 mg/dL (200); Creatinine, Serum 0.96 mg/dL (0.55-1.02); EST Glomerular Filtration Rate 60 mL/min (>60); Est Glom Filt Rate - Afr Amer 72 mL/min (>60); Free T3 2.2 pg/mL (2.18-3.98); Globulin 4.8 g/dL (2.2-4.2); Glucose 109 mg/dL (74-106); High Density Lipoprotein 55 mg/dL; Potassium 4.2 mmol/L (3.5-5.1); Protein, Total 8.5 g/dL (6.4-8.2); Sodium Level 139 mmol/L (136-145); T4 Free Direct 1.09 ng/dL (0.76-1.46); Thyroid Stim Hormone (TSH) 3.93 uIU/mL (0.358-3.74); Triglycerides 151 mg/dL; Very Low Density Lipoprotein 30 mg/dL (5-40)
[2021-07-17 09:41] LABS: Hemoglobin A1c 6.2 % (3.8-5.6)
[2021-07-18 16:40] LABS: AFP, Tumor Marker 2.5 ng/mL (0.0-9.2)
== END 2021-07-17 23:59 | disposition home or self-care (01) ==
LOC: LAB 05:48
PROVIDERS: PCP Family Medicine; Referring Provider Family Medicine; Visit Provider Family Medicine
DX: E03.9 Hypothyroidism, unspecified (principal); M34.1 CR(E)ST syndrome; K74.5 Biliary cirrhosis, unspecified; R73.03 Prediabetes; Z51.81 Encounter for therapeutic drug level monitoring; E78.5 Hyperlipidemia, unspecified
CPT/HCPCS: 36415; 80053; 80061; 82105; 83036; 84439; 84443; 84481; 85025; 85610; 85730

== ENCOUNTER → 2021-08-29 | Outpatient (CLI) | payer MEDICARE, OTHER, SELFPAY ==
--- NOTE | 2021-08-29 09:48 | BI_ITS ---
MAMMOGRAPHY - BILATERAL SCREENING REASON FOR EXAM: Female, 81 years old. Routine annual screening examination. PERTINENT HISTORY: Non-contributory. Remote right breast excisional biopsy in 2005. Right breast abscess in 2020. Recent left breast bruise in the lower inner quadrant at the 7 o''clock position. TECHNIQUE: Digital bilateral breast valarie (3D mammographic acquisition) in the CC and MLO projections. 2-D mediolateral oblique (MLO) and craniocaudad (CC) views of both breasts were obtained. CAD: Full Field Digital Mammography with Computer Added Detection was performed. COMPARISON: Screening mammogram from 08/24/2020. 08/19/2019. FINDINGS: Breast Composition: There are scattered areas of fibroglandular density. There are no dominant masses or suspicious calcifications. Stable bilateral secretory calcifications. No other significant abnormalities are identified. There has been no significant change since the prior study. BI/SCRN MAMM (CAD)W/VALARIE BILAT IMPRESSION: Stable bilateral screening mammogram. Yearly follow-up mammogram recommended. (A) ASSESSMENT CATEGORY: BIRADS Category 2: Benign. A letter regarding these results will be sent to the patient by the facility within 30 days. Approximately 10% of breast cancers are not detected by mammography. A normal mammogram should not delay biopsy of a clinically suspicious abnormality. [id number] Electronically Signed: Mani Barillas, at 16:39 EDT ,
--- NOTE | 2021-08-29 09:55 | BD_ITS ---
STUDY: DUAL ENERGY X-RAY ABSORPTIOMETRY / DXA REASON FOR EXAM: Female, 81 years old. M810. Patient is postmenopausal. TECHNIQUE: Bone Mineral Density (BMD) measurements of lumbar spine and bilateral hips were obtained. COMPARISON: Comparison is made with prior study dated 08/19/2019. FINDINGS: Lumbar Spine (L1-L4): g/cm2 (0.944) / T-score (-0.9) / Z-score (1.7) Findings are suggestive of normal bone density with a low fracture risk. Left Femur Total: g/cm2 (0.764) / T-score (-1.5) / Z-score (0.5) Left Femoral Neck: g/cm2 (0.586) / T-score (-2.4) / Z-score (-0.1) Right Femur Total: g/cm2 (0.809) / T-score (-1.1) / Z-score (0.9) Right Femoral Neck: g/cm2 (0.658) / T-score (-1.7) / Z-score (0.5) The T-Scores on the most recent prior examination were: Lumbar Spine (L1-L4): There has been improvement of bone density since the previous examination. Left Femur Total: which represents an improvement of 1.5%. Right Femur Total: which represents a worsening of 2.2%. BD/Dexa Bone Density Study IMPRESSION: The patient is considered osteopenic as outlined below according to World Marvel Organization (WHO) criteria with a high fracture risk. There has been improvement of bone density since the previous examination. Reference Information: The T-score is the number of standard deviations above or below the standard which is normal for young adults at their peak bone mineral density. The World Health Organization (WHO) interprets the T-scores as follows: Above -1 Normal bone density Between -1 and -2.5 Osteopenia Equal to / or below -2.5 Osteoporosis As a practical clinical guideline, osteopenia may be graded as follows: Mild -1 through -1.5 Moderate -1.6 through -2.0 Severe -2.1 through -2.4 The Z-score is the number of standard deviations above or below age-matched controls. A Z-score of less than -1.5 would be considered abnormal. References: 1. NIH Osteoporosis and Related Bone Diseases www osteo.org 2. International Society for Clinical Densitometry www iscd.org 3. National Osteoporosis Foundation www nof.org Electronically Signed: Shar Bundy MD at 12:53 EDT ,
== END | disposition home or self-care (01) ==
PROVIDERS: PCP Family Medicine; Referring Provider Family Medicine; Visit Provider Family Medicine
DX: Z12.31 Encounter for screening mammogram for malignant neoplasm of breast (principal); M81.0 Age-related osteoporosis without current pathological fracture
CPT/HCPCS: 77063; 77067; 77080

== ENCOUNTER → 2021-09-25 | Outpatient (CLI) | payer MEDICARE, OTHER, SELFPAY ==
[2021-09-25 13:27] VITALS: BP 104/59; PULSE 68; RESP 16; TEMP 36.4; O2SAT 97
[2021-09-25] MEDS: 0.9% NaCl Peripheral Flush Adult/Peds IV ×2 (13:30→13:56)
[2021-09-25] MEDS: Zoledronic Acid 5 MG 100 ML 300 MG IV (13:38)
[2021-09-25 14:01] VITALS: BP 101/59; PULSE 63; RESP 16; O2SAT 99
== END | disposition home or self-care (01) ==
LOC: MEDOUTP 13:14
PROVIDERS: PCP Family Medicine; Referring Provider Family Medicine; Visit Provider Family Medicine
DX: M81.0 Age-related osteoporosis without current pathological fracture (principal)
CPT/HCPCS: 96365; A4216; J3489

== ENCOUNTER → 2021-11-22 | Outpatient (CLI) | payer MEDICARE, OTHER, SELFPAY | END | disposition home or self-care (01) | PROVIDERS: PCP Family Medicine; Visit Provider Family Medicine | DX: R30.0 Dysuria (principal) | CPT/HCPCS: 87086; 87088; 87186 ==

== ENCOUNTER → 2022-02-05 | Outpatient (CLI) | payer MEDICARE, OTHER, SELFPAY ==
[2022-02-05 07:56] LABS: Free T3 2.2 pg/mL (2.18-3.98); T4 Free Direct 1.11 ng/dL (0.76-1.46); Thyroid Stim Hormone (TSH) 2.62 uIU/mL (0.358-3.74)
== END | disposition home or self-care (01) ==
LOC: LAB 05:59
PROVIDERS: PCP Family Medicine; Referring Provider Family Medicine; Visit Provider Family Medicine
DX: E03.9 Hypothyroidism, unspecified (principal)
CPT/HCPCS: 36415; 84439; 84443; 84481

== ENCOUNTER → 2022-04-19 | Outpatient (CLI) | payer MEDICARE, OTHER, SELFPAY | END | disposition home or self-care (01) | LOC: LABSPEC 15:35 | PROVIDERS: PCP Family Medicine; Visit Provider Family Medicine | DX: R30.0 Dysuria (principal) | CPT/HCPCS: 87086; 87088; 87186 ==

== ENCOUNTER → 2022-07-06 | Outpatient (CLI) | payer MEDICARE, OTHER, SELFPAY ==
[2022-07-06 06:58] LABS: Absolute Lymphocyte Count 1.92 X10^3/uL (0.83-4.51); Absolute Neutrophil Count 3.5 X10^3/uL (2.0-7.7); Basophil# 0.07 X10^3/uL; Basophil% 1.1 % (0-1); Eosinophil# 0.15 X10^3/uL; Eosinophils% 2.3 % (0-5); Hematocrit 43.2 % (37-47); Hemoglobin 14.1 g/dL (12.0-15.0); Lymphocyte # 1.92 X10^3/ul (0.83-4.51); Lymphocyte % 29.7 % (19-41); Mean Corp Hgb Conc 32.6 g/dL (32-36); Mean Corpuscular Hgb 30.3 pg (27.0-32.0); Mean Corpuscular Volume 92.7 fL (81-99); Monocyte# 0.83 X10^3/uL; Monocyte% 12.8 % (0-10); NRBC Flagged by Analyzer 0 % (0-5); Neutrophil # 3.49 X10^3/uL (2.7-7.7); Neutrophil % 53.9 % (47-70); Platelet Count 433 K/mm3 (150-450); RBC Distribution Width CV 14.6 % (11.6-14.6); RBC Distribution Width SD 50.4 fl (35.1-43.9); Red Blood Count 4.66 M/mm3 (4.2-5.4); White Blood Count 6.5 K/mm3 (4.4-11.0)
[2022-07-06 07:13] LABS: International Normalized Ratio 1.1; Prothrombin Time (Protime)PT. 13.4 SECONDS (11.7-14.9)
[2022-07-06 07:14] LABS: Partial Thromboplast Time 28.3 Seconds (24.1-36.2)
[2022-07-06 07:47] LABS: ALB/GLOB Ratio 0.8 RATIO (0.9-2.4); AST(SGOT) 19 U/L (15-37); Alanine Aminotransfer ALT/SGPT 14 U/L (13-56); Albumin, Serum 3.8 g/dL (3.2-5.0); Alkaline Phosphatase 117 U/L (45-117); Anion Gap 5 (5-15); BUN 19 mg/dL (7-18); BUN/Creat Ratio 19.7 RATIO (10-20); Calcium,Total 9.5 mg/dL (8.5-10.1); Chloride 107 mmol/L (98-107); Cholesterol 167 mg/dL (200); Creatinine, Serum 0.96 mg/dL (0.55-1.02); EST Glomerular Filtration Rate 59 mL/min (>60); Est Glom Filt Rate - Afr Amer 72 mL/min (>60); Free T3 2.4 pg/mL (2.18-3.98); Globulin 4.7 g/dL (2.2-4.2); Glucose 110 mg/dL (74-106); High Density Lipoprotein 60 mg/dL; Potassium 4.1 mmol/L (3.5-5.1); Protein, Total 8.5 g/dL (6.4-8.2); Sodium Level 141 mmol/L (136-145); T4 Free Direct 1.18 ng/dL (0.76-1.46); Thyroid Stim Hormone (TSH) 2.63 uIU/mL (0.358-3.74); Triglycerides 105 mg/dL; Very Low Density Lipoprotein 21 mg/dL (5-40)
[2022-07-06 08:01] LABS: Hemoglobin A1c 5.9 % (3.8-5.6)
[2022-07-07 11:00] LABS: AFP, Tumor Marker 2.3 ng/mL (0.0-9.2)
== END | disposition home or self-care (01) ==
PROVIDERS: PCP Family Medicine; Referring Provider Family Medicine; Visit Provider Family Medicine
DX: E03.9 Hypothyroidism, unspecified (principal); M34.1 CR(E)ST syndrome; K74.5 Biliary cirrhosis, unspecified; R73.03 Prediabetes; Z51.81 Encounter for therapeutic drug level monitoring; E78.5 Hyperlipidemia, unspecified
CPT/HCPCS: 36415; 80053; 80061; 82105; 83036; 84439; 84443; 84481; 85025; 85610; 85730

== ENCOUNTER → 2022-08-30 | Outpatient (CLI) | payer MEDICARE, OTHER, SELFPAY ==
--- NOTE | 2022-08-30 07:23 | BI_ITS ---
MAMMOGRAPHY - BILATERAL SCREENING REASON FOR EXAM: Female, 82 years old. Routine annual screening examination. PERTINENT HISTORY: Non-contributory. Prior right excisional breast biopsy. TECHNIQUE: Digital bilateral breast valarie (3D mammographic acquisition) in the CC and MLO projections. 2-D mediolateral oblique (MLO) and craniocaudad (CC) views of both breasts were obtained. CAD: Full Field Digital Mammography with Computer Added Detection was performed. COMPARISON: Comparison is made with prior study dated August 24, 2020 and August 19, 2019. FINDINGS: Breast Composition: The breasts are almost entirely fatty. There are no dominant masses or suspicious calcifications. Stable bilateral secretory calcifications. No other significant abnormalities are identified. There has been no significant change since the prior study. BI/SCRN MAMM (CAD)W/VALARIE BILAT IMPRESSION: Stable bilateral screening mammogram. Yearly follow-up mammogram recommended. (A) ASSESSMENT CATEGORY: BIRADS Category 2: Benign. A letter regarding these results will be sent to the patient by the facility within 30 days. Approximately 10% of breast cancers are not detected by mammography. A normal mammogram should not delay biopsy of a clinically suspicious abnormality. [id number] Electronically Signed: Shar Bundy MD at 8:48 EDT ,
== END | disposition home or self-care (01) ==
LOC: OPBI 07:22
PROVIDERS: PCP Family Medicine; Referring Provider Family Medicine; Visit Provider Family Medicine
DX: Z12.31 Encounter for screening mammogram for malignant neoplasm of breast (principal)
CPT/HCPCS: 77063; 77067

== ENCOUNTER 2022-09-27 12:33 | Outpatient (CLI) | payer MEDICARE, OTHER, SELFPAY ==
[2022-09-27 13:03] VITALS: BP 106/66; PULSE 63; RESP 16; TEMP 36.1
[2022-09-27] MEDS: 0.9% NaCl Peripheral Flush Adult/Peds IV (13:07)
[2022-09-27] MEDS: Zoledronic Acid 5 MG 100 ML 300 MG IV (13:13)
[2022-09-27 13:37] VITALS: BP 114/67; PULSE 57; RESP 16; TEMP 35.7; O2SAT 100
== END 2022-09-27 12:34 | disposition home or self-care (01) ==
LOC: MEDOUTP 12:33
PROVIDERS: PCP Family Medicine; Referring Provider Family Medicine; Visit Provider Family Medicine
DX: M81.0 Age-related osteoporosis without current pathological fracture (principal)
CPT/HCPCS: 96365; A4216; J3489

== ENCOUNTER 2022-11-14 07:59 | Emergency (ER) | payer MEDICARE, OTHER, SELFPAY ==
[2022-11-14 08:00] VITALS: BP 119/108; PULSE 88; RESP 16; TEMP 36.3; O2SAT 98; BMI 27.2
--- NOTE | 2022-11-14 08:38 | RAD_ITS ---
STUDY: X-RAY - FACIAL BONES REASON FOR STUDY: Female, 82 years old. Injury attn: R maxilla TECHNIQUE: 3 view(s) of the facial bones. COMPARISON: None. FINDINGS: Normal bilateral frontozygomatic and zygomatic-temporal arches. Normal bilateral medial and inferior orbital loyd. Normal bilateral orbits. Normal visualized nasal bones. Normal anterior nasal spine. The remaining visualized osseous structures are normal. Normal visualized paranasal sinuses. RAD/Facial Bones min 3 Views IMPRESSION: Normal x-ray examination of the facial bones. Electronically Signed: Shar Bundy MD at 9:10 EDT ,
--- NOTE | 2022-11-14 08:38 | RAD_ITS ---
STUDY: X-RAY - UNILATERAL RIBS ( LEFT ) WITH CHEST REASON FOR EXAM: Female, 82 years old. Fall/injury. Left anterior rib pain. TECHNIQUE - RIBS: 4 view(s) of the ribs. TECHNIQUE - CHEST: Single PA view of the chest. COMPARISON: None. FINDINGS - RIBS: Normal visualized ribs without a demonstrated fracture. FINDINGS - CHEST: Hyperinflation. There is no demonstrated pleural abnormality. Normal size heart. Calcified small bilateral hilar lymph nodes more prominent on the right side. Normal visualized pulmonary arteries. Normal visualized aortic arch and descending thoracic aorta. Normal visualized thoracic spine. Normal visualized ribs, clavicles, and shoulders. There is no demonstrated abnormality of the visualized soft tissue structures of the upper abdomen. RAD/Ribs Uni Min 3V w/PA Chest IMPRESSION: RIBS: Normal x-ray examination of the ribs. CHEST: Normal x-ray examination of the chest. Electronically Signed: Shar Bundy MD at 9:11 EDT ,
--- NOTE | 2022-11-14 08:40 | EDS_ITS ---
HPI HPI - Fall History of Present Illness Chief Complaint: Fall Informant: patient and spouse/S.O. Narrative Narrative: 10-year-old female who fell 3 days ago while she was gathering trash and recycling which was on the edge of a step, and she accidentally fell down the steps, there were just 2 of them. She is not sure exactly how she landed but she did not lose consciousness, but since then she has had pain on her left chest wall that hurts to breathe and move, as well as her right face and lip. Also think she fell onto her left outstretched hand and had some pain in her left hand with trying to open pill bottles for the last day or 2 but today it did not bother her. No headache, no vision changes or diplopia, no neurologic symptoms or confusion, she takes no antiplatelet or anticoagulant medications, and other than a few scrapes on her legs she denies any other injury. [facility] Medical History Biliary cirrhosis Contact with and (suspected) exposure to other viral communicable diseases CREST syndrome Hyperlipidemia Hypothyroidism Osteoporosis Home Medications aspirin 81 mg chewable tablet 81 mg PO DAILY@0800 09/08/13 [History Last Taken Unknown] pravastatin 40 mg tablet 40 mg PO DAILY 09/08/13 [History Last Taken Unknown] zoledronic acid 5 mg/100 mL in mannitol 5 %-water intravenous piggybck 5 mg IV UD 09/08/13 [History Last Taken Unknown] cyclosporine 0.05 % eye drops in a dropperette (Restasis) 1 drp BID 02/05/14 [History Last Taken Unknown] Ca 600 mg-D3 800 unit-magnes 40 ht-mpru-etg-raymond-boron chewable tablet (Caltrate 600-D Plus Minerals) 1 tab PO BID 01/23/22 [History Last Taken Unknown] fluoride (sodium) 0.2 % dental solution 10 ml PO DAILY 01/23/22 [History Last Taken Unknown] levothyroxine 25 mcg capsule 75 mcg PO .SaSuM 01/23/22 [History Last Taken Unknown] levothyroxine 25 mcg tablet 25 mcg PO .TuWeThF 01/23/22 [History Last Taken Unknown] ursodiol 500 mg tablet (MELLO Forte) 500 mg PO TID 01/23/22 [History Last Taken Unknown] vitamins A,C,D-ljgo-lwnbud 4,296 mcg-226 mg-90 mg capsule (PreserVision AREDS) 1 cap PO BID 01/23/22 [History Last Taken Unknown] benzonatate 200 mg capsule 200 mg PO TID PRN cough #20 caps 02/26/22 [Rx Last Taken Unknown] Allergy/AdvReac Type Severity Reaction Status Date / Time No Known Allergies Allergy Verified 11/14/22 08:03 Family History (Reviewed 01/23/22 @ 08:45 by Purnima Woody LICENSED NUCLEAR OPERATOR, LICENSED NUCLEAR OPERATOR-C) Mother Heart disease Clotting disorder Hypertension Diabetes Thyroid disorder Sister Heart disease Thyroid disorder Brother Clotting disorder Surgical History History of colonoscopy History of liver biopsy Social History Smoking Status: Never smoker alcohol intake: never substance use type: does not use caffeine: Yes Type: coffee Number of servings: 1 ROS ROS ED Constitutional Constitutional ED: Denies chills or fever(s) Eyes Eyes: Denies change in vision or diplopia ENT ENT ED: Reports as per HPI and facial pain; Denies ear pain or rhinorrhea Cardiovascular Cardiovascular: Reports as per HPI and chest pain; Denies palpitations Respiratory/Chest Respiratory/Chest: Denies cough or dyspnea Gastrointestinal Gastrointestinal: Denies abdominal pain, diarrhea, melena, nausea or vomiting Genitourinary Genitourinary ED: Denies dysuria or hematuria Musculoskeletal Musculoskeletal: Denies back pain, extremity pain or neck pain Integumentary Reports Abrasions; Denies abscess, laceration or rash Neurologic Neurologic: Denies confusion, headache(s), paresthesias or weakness EXAM Physical Exam Const Vital Signs: 11/14/22 08:00 11/14/22 08:09 Temperature 97.4 F L Temperature Source Temporal Pulse Rate 88 Respiratory Rate 16 Respiratory Effort Short of Breath Respiratory Depth Normal Respiratory Pattern Normal Blood Pressure 119/108 H Blood Pressure Mean 111 Pulse Ox 98 Oxygen Delivery Method Room Air Room Air Positive well nourished and well developed General Appearance ED: well developed and NAD HEENT Reports TM's clear and nasal mucous membranes and turbinates normal HEENT Narrative: Ecchymosis right lateral lower lip without laceration. No evidence of epistaxis. No dental injury. atraumatic Face and Sinus: facial tenderness right (Point tender at the anterolateral aspect of the right maxillary bone, without infraorbital hypoesthesia, instability, zygomatic arch tenderness. No other areas of facial tenderness.) Tympanic Membrane ED: Yes TM's clear Eyes PERRL and EOMs intact bilaterally Visual Acuity: other Other Details: no entrapment or pain with extraocular movements Neck full ROM and supple General: Negative for tenderness Chest Wall inspection of chest normal Chest Narrative: Tender left anterior lateral chest wall, approximately ribs 4-5, no crepitance or subcutaneous emphysema, no tenderness in the parasternal area, sternum, or lateral/posterior areas. No deformity or flail. Chest: symmetrical chest wall rise and tenderness; Negative for crepitus Resp normal respiratory effort and clear to auscultation bilaterally Percussion: other equal BS bilat Cardio no murmurs Rate: regular rate; Negative for tachycardic Rhythm: regular rhythm GI normal to inspection, nondistended, normoactive bowel sounds, soft to palpation and non-tender Back/Spine normal ROM Cervical Spine: Negative for cervical spine tenderness Thoracic Spine / Upper Back: Negative for thoracic spinal tenderness Lumbar Spine / Lower Back: Negative for lumbar spinal tenderness Extremity normal to inspection and full ROM Extremity Narrative: Minor contusion/abrasion left foot, right knee. Contusion to the right hand dorsally between the fourth and fifth metacarpals without any bony tenderness or limited range of motion. Another small area of contusion in the webspace between the thumb and the left index, there is no bony tenderness throughout the hand, wrist, or limitations in range of motion. She can make a strong fist with the left hand without any pain. Painless pronation/supination with regards to the wrist and elbow. General Extremety ED: Negative for tenderness Neuro oriented x3, CN's II-XII intact bilaterally, moves all extremities, no focal motor deficits and no sensory deficits noted Laurens Coma Scale: document GCS findings Spontaneous Obeys Commands Oriented 15 Sensorium / Orientation: awake and alert Psych mental status grossly normal and thought process normal Skin no wounds Lesions: no lesions Rashes: no rashes MDM MDM MDM Narrative Medical decision making narrative: Patient does not have any symptoms of an orbit fracture, but given the tenderness on the maxilla, I did obtain facial x-rays. I do not think a CT is necessary. 3 views of my interpretation including a Royal' view look normal without any signs of a maxillary or orbital floor fracture. Radiology in agreement. Also obtained 5 view x-ray series of the left ribs and PA chest, which are negative for hemothorax, pneumothorax, pulmonary contusion, rib fracture my interpretation. Radiology in agreement with that 1 as well. Patient reassured, will be offered pain medication and appropriate instructions for discharge, we discussed avoiding wrapping/strapping her rib cage. Radiography Diagnostic Testing: Clinical Impression(s) from Imaging Studies Facial Bones X-Ray 11/14/22 08:38 IMPRESSION: Normal x-ray examination of the facial bones. Electronically Signed: Shar Bundy MD at 9:10 EDT , Ribs w/Chest X-Ray 11/14/22 08:38 IMPRESSION: RIBS: Normal x-ray examination of the ribs. CHEST: Normal x-ray examination of the chest. Electronically Signed: Shar Bundy MD at 9:11 EDT , Discharge Plan Triage Chief Complaint: Fall ED Provider: Cristi Peterson Dx/Rx/DC Orders Clinical Impression: Contusion of hand, Contusion of rib on left side, Contusion of face, Fall from steps, Abrasion of lower extremity Instructions: ED Rib Contusion or Minor Fracture Prescriptions: No Action fluoride (sodium) 0.2 % solution 10 ml PO DAILY Patient Comments: RINSE WITH 2 TEASPOONS FOR 1 MINUTE AND THEN SPIT OUT DAILY levothyroxine 25 mcg capsule 75 mcg PO .SaSuM benzonatate 200 mg capsule 200 mg PO TID PRN (Reason: cough) Qty: 20 0RF pravastatin 40 MG tablet 40 mg PO DAILY aspirin 81 MG tablet,chewable 81 mg PO DAILY@0800 zoledronic psba-epekyihb-kguzt 5 MG/100 ML piggyback 5 mg IV UD ursodiol [MELLO Forte] 500 mg tablet 500 mg PO TID cyclosporine [Restasis] 1 EACH dropperette 1 drp Each Eye BID Patient Comments: PreserVision AREDS [id number],320-226-200 ihvq-gc-aavi capsule 1 cap PO BID Caltrate 600-D Plus Minerals 600 mg calcium- 800 unit-40 mg tablet,chewable 1 tab PO BID levothyroxine 25 mcg tablet 25 mcg PO . Primary Care Provider: Marsha Cedillo Referrals: Marsha Cedillo, [Primary Care Provider] - 1 Week if not improving (Or if suddenly out of breath return to the ER for repeat x-ray) Disposition Disposition: Home, Self Care Discharge Date/Time: 11/14/22 10:45
== END 2022-11-14 10:45 | disposition home or self-care (01) ==
PROVIDERS: Emergency Provider Emergency Medicine; PCP Family Medicine; Visit Provider Emergency Medicine
DX: S00.83XA Contusion of other part of head, initial encounter (principal); S80.819A Abrasion, unspecified lower leg, initial encounter; S20.212A Contusion of left front wall of thorax, initial encounter; S60.222A Contusion of left hand, initial encounter; W10.9XXA Fall (on) (from) unspecified stairs and steps, initial encounter; Y93.89 Activity, other specified
CPT/HCPCS: 70150; 71101; 99283

== ENCOUNTER 2023-05-01 09:48 | Outpatient (CLI) | payer MEDICARE, OTHER, SELFPAY ==
[2023-05-01 12:25] LABS: International Normalized Ratio 1.1; Prothrombin Time (Protime)PT. 13.7 SECONDS (11.7-14.9)
[2023-05-01 12:31] LABS: Hematocrit 38.2 % (37-47); Hemoglobin 12.2 g/dL (12.0-15.0); Mean Corp Hgb Conc 31.9 g/dL (32-36); Mean Corpuscular Hgb 29.9 pg (27.0-32.0); Mean Corpuscular Volume 93.6 fL (81-99); Mean Platelet Vol. 10.5 fl (6.2-12.0); Platelet Count 389 K/mm3 (150-450); RBC Distribution Width CV 15.1 % (11.6-14.6); RBC Distribution Width SD 52.2 fl (35.1-43.9); Red Blood Count 4.08 M/mm3 (4.2-5.4)
[2023-05-01 13:07] LABS: ALB/GLOB Ratio 0.8 RATIO (0.9-2.4); AST(SGOT) 17 U/L (15-37); Alanine Aminotransfer ALT/SGPT 16 U/L (13-56); Albumin, Serum 3.5 g/dL (3.2-5.0); Alkaline Phosphatase 86 U/L (45-117); Anion Gap 4 (5-15); BUN 22 mg/dL (7-18); BUN/Creat Ratio 22.3 RATIO (10-20); Calcium,Total 9.7 mg/dL (8.5-10.1); Chloride 107 mmol/L (98-107); Creatinine, Serum 0.98 mg/dL (0.55-1.02); EST Glomerular Filtration Rate 58 mL/min (>60); Est Glom Filt Rate - Afr Amer 70 mL/min (>60); Globulin 4.3 g/dL (2.2-4.2); Glucose 83 mg/dL (74-106); Potassium 3.8 mmol/L (3.5-5.1); Protein, Total 7.8 g/dL (6.4-8.2); Sodium Level 139 mmol/L (136-145); T4 Total, Thyroxin 9.2 ug/dL (4.8-13.9); Thyroid Stim Hormone (TSH) 1.65 uIU/mL (0.358-3.74)
[2023-05-02 04:07] LABS: AFP, Tumor Marker 2.5 ng/mL (0.0-9.2)
== END 2023-05-01 23:59 | disposition home or self-care (01) ==
PROVIDERS: PCP Family Medicine; Referring Provider Internal Medicine Gastroenterology; Visit Provider Internal Medicine Gastroenterology
DX: K74.5 Biliary cirrhosis, unspecified (principal)
CPT/HCPCS: 36415; 80053; 82105; 84436; 84443; 85027; 85610

== ENCOUNTER → 2023-05-24 | Outpatient (CLI) | payer MEDICARE, OTHER, SELFPAY ==
--- NOTE | 2023-05-24 08:41 | US_ITS ---
STUDY: ABDOMINAL ULTRASOUND - RIGHT UPPER QUADRANT; ELASTOGRAPHY REASON FOR VISIT: Female, 82 years old. Primary biliary cirrhosis. TECHNIQUE: Ultrasound evaluation of the right upper quadrant was performed with real-time and static rubio-scale imaging. Point quantification shear wave elastography was performed ([employer]). TECHNICAL QUALITY: Adequate. COMPARISON: Comparison is made with prior study dated April 24, 2021. FINDINGS: Liver: The liver measures 14 cm. There is a heterogeneous echogenicity of the liver. The bile ducts are within normal limits. There is hepatic color flow. The direction of portal flow is hepatopetal. There is no demonstrated mass lesion. Median liver stiffness measured 9.2 kPa. Gallbladder: Normal distended gallbladder. The gallbladder wall measures 2.6 mm. There is a negative sonographic Marie''s sign. There is no pericholecystic fluid. There are no gallstones. Common Bile Duct (C.B.D.): The common bile duct measures 7 mm. Pancreas: There is normal echogenicity of the visualized pancreas. There is no demonstrated pancreatic mass or cyst. Right Kidney: Normal size of the right kidney. The right kidney measures 10.7 cm x 4.8 cm x 3.9 cm. Normal renal cortex. The right cortex measures 0 point cm. There is no demonstrated renal mass or cyst. There is no right hydronephrosis. US/ABD Limited w/ Elastography IMPRESSION: 1. Liver stiffness measures 9.2 kPa compatible with F2-F3 (Mild to moderate liver fibrosis) Metavir score. 2. Stable heterogeneous echogenicity of the liver. Electronically Signed: Shar Bundy MD at 9:46 EST ,
--- OUTSIDE RECORDS SUMMARY | 2023-05-24 08:57 | XMS RPT_ITS | CCD ---
Author Name Unknown Address [address] [facility] [address] [place] [address] Organization [facility] Care Team Providers Care Marketing Communications Coordinator Name Role Phone Dewey Peterson Unavailable Unavailable Marsha Fleming Unavailable Unavailable XANDER GARZON Attending Unavailable MARSHA FLEMING Primary Care Unavailable Marsha Fleming DO Primary Care Provider [phone] Medications Completed/Discontinued Medications Medication Drug Class(es) Dates Sig (Normalized) Sig (Original) aspirin 81 mg oral tablet (1 source) Platelet Aggregation Inhibitor, Nonsteroidal Anti-inflammatory Drug Start: 10-22-2005 ASPIRIN 81 MG TAB Take one(1) tablet daily. 0 10/22/2005 Active Problems Active Problems Problem Classification Problem Date Documented Da te Episodic/Chronic Nonmalignant breast conditions (2 sources) Cellulitis of breast; Translations: [Mastitis without abscess] Onset: 10-22-2005 Episodic Other inflammatory condition of skin (1 source) Rosacea; Translations: [Rosacea, unspecified] Onset: 09-09-2009 09-09-2009 Chronic Unclassified (1 source) Unknown / UNK(Unknown) Onset: 05-08-2017 Past or Other Problems Problem Classification Problem Date Documented Da te Episodic/Chronic Allergic reactions (2 sources) Solar degeneration; Translations: [Other skin changes due to chronic exposure to nonionizing radiation] Onset: 09-09-2009 09-09-2009 Episodic Other inflammatory condition of skin (1 source) Prurigo nodularis; 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] Onset: 09-09-2009 09-09-2009 Episodic Other inflammatory condition of skin (1 source) Inflammatory dermatosis; 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] Onset: 04-13-2010 04-13-2010 Episodic Other injuries and conditions due to external causes (1 source) Excoriation of skin; Translations: [Other injury of unspecified body region, initial encounter] Onset: 09-09-2009 09-09-2009 Episodic Other skin disorders (1 source) Sebaceous cyst of skin; Translations: [Sebaceous cyst] Onset: 12-30-2008 12-30-2008 Episodic Other skin disorders (1 source) Solar lentigo; Translations: [Other melanin hyperpigmentation] Onset: 09-09-2009 09-09-2009 Episodic Other skin disorders (1 source) Scar; Translations: [Scar conditions and fibrosis of skin] Onset: 09-09-2009 09-09-2009 Episodic Other skin disorders (1 source) Disorder of pigmentation; Translations: [Disorder of pigmentation, unspecified] Onset: 09-09-2009 09-09-2009 Episodic Unclassified (1 source) HEPATIC CIRRHOSIS~ Onset: 05-08-2017 Results Test Name Value Interpretation Reference Range Facil ity Vital Signs Date Time Vital Sign Value Performing Clinician Faci lity 02-09-2022 09:16-0400 Body height 167.6 cm Xander Garzon MD Work Phone: [facility] 02-09-2022 09:16-0400 Body temperature 97.7 [degF] Xander Garzon MD Work Phone: [facility] 02-09-2022 09:16-0400 Body weight 78.47 kg Xander Garzon MD Work Phone: [facility] 02-09-2022 09:16-0400 Diastolic blood pressure 64 mm[Hg] Xander Garzon MD Work Phone: [facility] 02-09-2022 09:16-0400 Heart rate 77 /min Xander Garzon MD Work Phone: [facility] 02-09-2022 09:16-0400 SaO2% (BldA) [Mass fraction] 100 % Xander Garzon MD Work Phone: [facility] 02-09-2022 09:16-0400 Systolic blood pressure 112 mm[Hg] Xander Garzon MD Work Phone: [facility] Encounters Encounter Date Encounter Type Care Provider Facility Start: 02-09-2022 End: 02-09-2022 ambulatory XANDER GARZON Facility:[facility] Start: 02-09-2022 End: 02-09-2022 Patient encounter procedure Xander Garzon MD Work Phone: General Surgery Plan of Treatment Date Care Activity Detail Author Start: 05-06-2021 ADVANCE DIRECTIVE DISCUSSION ADVANCE DIRECTIVE DISCUSSION [facility] Start: 05-06-2021 DEPRESSION ASSESSMENT DEPRESSION ASS ESSMENT [facility] Start: 08-29-2007 BONE DENSITY BONE DENSITY [facility] Start: 08-29-2007 PNEUMOCOCCAL: 65+ (1 - PCV) PNEUMOCOCCAL: 65+ (1 - PCV) [facility] Start: 1992 SHINGRIX VACCINE (1 of 2) GILLIS GRIX VACCINE (1 of 2) [facility] Start: 08-29-1987 DIABETES SCREEN DIABETES SCREEN [facility] Start: 1961 Urine microalbumin profile DTAP,TDAP ,TD (1 - Tdap) [facility] Payers Date Payer Category Payer Private Health Insurance [id number] 2020 Private Health Insurance CIG[employer] C IGNA PPO [id number] 2020-Present [phone] [address] [place] [address] PPO [id number] 2007 Medicare [id number] 2007 Medicare [id number] 2007 Medicare MEDICARE MEDICAR E A AND B [id number] 2007-Present [phone] [address] [address] [place] [address] Medicare [id number] Social History Date Type Detail Facility Start: 02-09-2022 Tobacco smoking stat us CAIS Never smoked tobacco [facility] Start: 02-09-2022 Tobacco use and exposure Smoke less tobacco non-user [facility] Start: 02-09-2022 Alcohol intake 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 It has not been draining she has had an abscess in the past that which I had opened up. She just noticed this recently.. 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 Reclast infusion Current Outpatient Medications Medication Sig sod pyrophos/alcohol/glyce/sls (DENTAL RINSE-ANTI TARTAR DENTAL) by DENTAL route. pravastatin (PRAVACHOL) 40 mg tablet Take 40 mg by mouth once daily. ZOLEDRONIC ACID/MANNITOL-WATER (RECLAST INTRAVEN.) Inject intravenously one time only. VIT A/VIT C/VIT E/ZINC/COPPER (PRESERVISION AREDS ORAL) Take by mouth twice daily. cycloSPORINE 0.05 % drop Use 1 Drop in eyes twice daily. Levothyroxine 25 mcg cap Take 25 mcg by mouth once daily. 50 mcg on Saturday, Saturday and Saturday COMPOUNDED PRESCRIPTION Caltrate 600 mg + D twice daily. ursodiol(MELLO FORTE 500 MG TAB) 2.5 tabs daily ASPIRIN 81 MG TAB Take one(1) tablet daily. sulfamethoxazole-trimethoprim (BACTRIM DS) 800-160 mg per tablet Take 1 tablet by mouth twice daily. (Patient not taking: Reported on 02/09/2022) No current facility-administered medications for this visit. ALLERGIES: Patient has no known allergies. PERSONAL HISTORY: Social History Tobacco Use Smoking status: Never Smokeless tobacco: Never Vaping Use Vaping Use: Never used Substance Use Topics Alcohol use: No Drug use: No FAMILY HISTORY: FAMILY HISTORY Problem Relation Age of Onset Heart Mother chf Diabetes Mother Cataract Mother Glaucoma Mother Hypertension Mother Cancer Father gastric Thyroid Sister Glaucoma Sister other (Other) Sister eye issues other (gout) Brother Diabetes Brother Heart Brother Glaucoma Brother Hypertension Brother other (Other) Brother bleeding disorder Heart Sister other (ulcerative colitis) Daughter other (migraines) Daughter other (Other) Sister 1 yr old REVIEW OF SYMPTOMS: The review of systems data was entered by the nurse and reviewed by nh Nursing Notes: Marquita Anderson LPN 02/09/2022 9:19 AM Signed REVIEW OF SYSTEMS: General: The patient denies fatigue, denies weight loss, denies weight gain, denies feeling hot, and denies feelings of cold. Eyes: The patient notes glaucoma, denies eye injury/surgery, does not wear glasses or contacts. Ear/Nose/Throat: The patient denies allergies, denies hayfever, denies ear infections, and denies bloody noses. Cardiovascular: The patient denies chest pain, denies heart disease, denies high blood pressure,denies cardiac stent, denies prior heart attack, denies irregular heart beat, denies high cholesterol, denies poor circulation, denies heart failure, other cardiac issues, denies claudication, denies cold feet, denies peripheral arterial stent. Respiratory: The patient denies tuberculosis, denies pneumonia, denies frequent cough, denies pulmonary embolism, denies shortness of breath, and denies coughing up blood. Gastrointestinal: The patient denies difficulty swallowing, denies acid reflux, denies ulcers, denies vomiting, denies jaundice/hepatitis, denies gallbladder problems, denies black or tarry stools, notes hemorrhoids, denies bleeding from rectum, denies diverticulitis, denies constipation, denies diarrhea, denies loss of stool control, and denies hernias. Kidney/Bladder: The patient denies kidney stones, denies urine infections, and denies bloody urine. Skin: The patient denies a history of skin cancer, denies bleeding/changing moles, and denies a history of skin rash. Neurologic: The patient denies a history of epilepsy/convulsions, denies headaches, denies head/spinal injuries, and denies stroke/TIA. Psychiatric: The patient denies psychiatric medications, denies depression, and denies voices, denies substance abuse. Endocrine: The patient notes thyroid disorders, denies diabetes, and denies hormonal problems. Hematologic: The patient denies a history of bruising, denies bleeding, and denies anemia, denies blood clots. Infections: The patient denies a history of measles and mumps, denies rheumatic fever, and denies sexually transmitted diseases. Musculoskeletal: The patient denies back pain/injury, denies back problems, denies sciatica, denies knee/foot trouble, denies arthritis, or denies gout. When was patient's last Mammogram screening? 2021 Last Colonoscopy: 2010 Marquita Anderson LPN PHYSICAL EXAMINATION: General: The patient is 81 year old female, well nourished, well hydrated in no acute distress. The patient is oriented to time, place, and person. VITALS: Blood pressure 112/64, pulse 77, temperature 36.5 C (97.7 F), height 167.6 cm (5' 6 ), weight 78.5 kg (173 lb), SpO2 100 %. HEENT: Normal cephalic, ataumatic, pupils are equally round, sclera are anicteric, mucous membranes are moist, oropharynx is clear. Neck has no masses, asymmetry or lymphadenopathy. Thyroid is unremarkable. Extremities: no clubbing, cyanosis or edema. No adenopathy. Other: Underneath her right breast there is an old area which I previous it opened up and cutaneous abscess the skin is discolored but there is no discharge from it there is no calor there is nothing drainage from it LABORATORY VALUES: As Noted RADIOLOGIC STUDIES: As Noted Assessment IMPRESSION: Cellulitis of breast (primary encounter diagnosis) PLAN: 1 to continue to do washing with soap and water and use peroxide on it. Try to keep it as dry as possible. If it starts to drain then I will need to see her back and probably open this area back up but I have a feeling that this is just going to take care of itself with just local wound care. Diagnoses: (N61.0) Cellulitis of breast (primary encounter diagnosis) Return to Clinic: The patient is instructed to follow-up with me as needed. Xander Garzon III, MD documented in this encounter [facility] Nurse Note 02-09-2022 Marquita Anderson, FURNACE INSTALLER HELPER - 02/09/2022 9:18 AM EDT Note Date & Type Note Facility 02-09-2022 Nurse Note REVIEW OF SYSTEMS: General: The patient denies fatigue, denies weight loss, denies weight gain, denies feeling hot, and denies feelings of cold. Eyes: The patient notes glaucoma, denies eye injury/surgery, does not wear glasses or contacts. Ear/Nose/Throat: The patient denies allergies, denies hayfever, denies ear infections, and denies bloody noses. Cardiovascular: The patient denies chest pain, denies heart disease, denies high blood pressure,denies cardiac stent, denies prior heart attack, denies irregular heart beat, denies high cholesterol, denies poor circulation, denies heart failure, other cardiac issues, denies claudication, denies cold feet, denies peripheral arterial stent. Respiratory: The patient denies tuberculosis, denies pneumonia, denies frequent cough, denies pulmonary embolism, denies shortness of breath, and denies coughing up blood. Gastrointestinal: The patient denies difficulty swallowing, denies acid reflux, denies ulcers, denies vomiting, denies jaundice/hepatitis, denies gallbladder problems, denies black or tarry stools, notes hemorrhoids, denies bleeding from rectum, denies diverticulitis, denies constipation, denies diarrhea, denies loss of stool control, and denies hernias. Kidney/Bladder: The patient denies kidney stones, denies urine infections, and denies bloody urine. Skin: The patient denies a history of skin cancer, denies bleeding/changing moles, and denies a history of skin rash. Neurologic: The patient denies a history of epilepsy/convulsions, denies headaches, denies head/spinal injuries, and denies stroke/TIA. Psychiatric: The patient denies psychiatric medications, denies depression, and denies voices, denies substance abuse. Endocrine: The patient notes thyroid disorders, denies diabetes, and denies hormonal problems. Hematologic: The patient denies a history of bruising, denies bleeding, and denies anemia, denies blood clots. Infections: The patient denies a history of measles and mumps, denies rheumatic fever, and denies sexually transmitted diseases. Musculoskeletal: The patient denies back pain/injury, denies back problems, denies sciatica, denies knee/foot trouble, denies arthritis, or denies gout. When was patient's last Mammogram screening? 2021 Last Colonoscopy: 2010 Marquita Anderson LPN documented in this encounter [facility] Evaluation note Note Date & Type Note Facility documented in this encounter [facility] Summary Purpose Family History No Family History Records FoundNo Family History Records Found Advance Directives No Advanced Directives Records FoundNo Advanced Directives Records Found Additional Source Comments INFORMATION SOURCE (unrecogn ized section and content) DATE CREATED AUTHOR AUTHOR'S ORGANIZ ATION 02/09/2022 [facility] Source Comments (unrecognize d section and content) In the event this informatio n is protected by the Federal Confidentiality of Alcohol and Drug Abuse Patient Records regulations: The Federal rules restrict any use of the information to criminally investigate or prosecute any alcohol or drug abuse patient.[facility] Reason for Visit (unrecogniz ed section and content) Care Teams (unrecognized sec tion and content) FOR RECORDS PERTAINING TO PATIENTS WHO ARE OR HAVE BEEN ENROLLED IN A CHEMICAL DEPENDENCY/SUBSTANCEABUSE PROGRAM, SOME INFORMATION MAY BE OMITTED. This clinical summary was aggregated from multiple sources. Caution should be exercised in using it in the provision of clinical care. This summary normalizes information from multiple sources, and as a consequence, information in this document may materially change the coding, format and clinical context of patient data. In addition, data may be omitted in some cases. CLINICAL DECISIONS SHOULD BE BASED ON THE PRIMARY CLINICAL RECORDS. [facility] [employer] [facility]. provides no warranty or guarantee of the accuracy or completeness of information in this document.
== END | disposition home or self-care (01) ==
LOC: US 08:40
PROVIDERS: PCP Family Medicine; Referring Provider Internal Medicine Gastroenterology; Visit Provider Internal Medicine Gastroenterology
DX: K74.5 Biliary cirrhosis, unspecified (principal)
CPT/HCPCS: 91200; 76705; 76981

== ENCOUNTER → 2023-07-18 | Outpatient (CLI) | payer MEDICARE, OTHER, SELFPAY ==
--- OUTSIDE RECORDS SUMMARY | 2023-07-18 06:29 | XMS RPT_ITS | CCD ---
Author Name Unknown Address [address] [facility] [address] [place] [address] Organization [facility] Care Team Providers Care Mail Courier Name Role Phone Dewey Peterson Unavailable Unavailable Marsha Fleming Unavailable Unavailable XANDER GARZON Attending Unavailable MARSHA FLEMING Primary Care Unavailable Marsha Fleming DO Primary Care Provider Medications Completed/Discontinued Medications Medication Drug Class(es) Dates [...] 167.6 cm Xander Garzon MD Work Phone: [facility] 02-09-2022 09:16-0400 Body temperature 97.7 [degF] Xander Garzon MD Work Phone: [facility] 02-09-2022 09:16-0400 Body weight 78.47 kg Xander Garzon MD Work Phone: [facility] 02-09-2022 09:16-0400 Diastolic blood pressure 64 mm[Hg] Xander Garzon MD Work Phone: [facility] 02-09-2022 09:16-0400 Heart rate 77 /min Xander Garzon MD Work Phone: [facility] 02-09-2022 09:16-0400 SaO2% (BldA) [Mass fraction] 100 % Xander Garzon MD Work Phone: [facility] 02-09-2022 09:16-0400 Systolic blood pressure 112 mm[Hg] Xander Garzon MD Work Phone: [facility] Encounters Encounter Date Encounter Type Care Provider Facility Start: 02-09-2022 End: 02-09-2022 ambulatory XANDER GARZON Facility:[facility] Start: 02-09-2022 End: 02-09-2022 Patient encounter procedure Xander Garzon MD Work Phone: General Surgery Plan of Treatment Date Care Activity Detail Author Start: 05-06-2021 ADVANCE DIRECTIVE DISCUSSION ADVANCE DIRECTIVE DISCUSSION [facility] Start: 05-06-2021 DEPRESSION ASSESSMENT DEPRESSION ASS ESSMENT [facility] Start: 08-29-2007 BONE DENSITY BONE DENSITY [facility] Start: 08-29-2007 PNEUMOCOCCAL: 65+ (1 - PCV) PNEUMOCOCCAL: 65+ (1 - PCV) [facility] Start: 1992 SHINGRIX VACCINE (1 of 2) GILLIS GRIX VACCINE (1 of 2) [facility] Start: 08-29-1987 DIABETES SCREEN DIABETES SCREEN [facility] Start: 1961 Urine microalbumin profile DTAP,TDAP ,TD (1 - Tdap) [facility] Payers Date Payer Category Payer Private Health Insurance [id number] 2020 Private Health Insurance CIGNA C IGNA PPO [id number] 2020-Present [phone] [address] [place] [address] PPO [id number] 2007 Medicare [id number] 2007 Medicare [id number] 2007 Medicare MEDICARE MEDICAR E A AND B [id number] 2007-Present [phone] [address] [address] [place] [address] Medicare [id number] Social History Date Type Detail Facility Start: 02-09-2022 Tobacco smoking stat us FLIS Never smoked tobacco [facility] Start: 02-09-2022 Tobacco use and exposure Smoke less tobacco non-user [facility] Start: 02-09-2022 Alcohol intake 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) [facility] Start: 1940 Sex Assigned At Not on file C [facility] Start: 01-30-2022 End: 02-09-2022 Exposure to SARS-CoV-2 (event) Not sure [facility] History of Present illness Narrative 02-11-2022 [...] entered by the nurse and reviewed by wy Nursing Notes: Marquita Anderson LPN 02/09/2022 9:19 [...] Garzon III, MD documented in this encounter [facility] Nurse Note 02-09-2022 Marquita Anderson, LIME SPREADER - 02/09/2022 9:18 AM EDT Note Date [...] Marquita Anderson LPN documented in this encounter [facility] Evaluation note Note Date & Type Note Facility documented in this encounter [facility] Summary Purpose Family History No Family History Records FoundNo Family History Records Found Advance Directives No Advanced Directives Records FoundNo Advanced Directives Records Found Additional Source Comments INFORMATION SOURCE (unrecogn ized section and content) DATE CREATED AUTHOR AUTHOR'S ORGANIZ ATION 02/09/2022 [facility] Source Comments (unrecognize d section and content) In the event this informatio n is protected by the Federal Confidentiality of Alcohol and Drug Abuse Patient Records regulations: The Federal rules restrict any use of the information to criminally investigate or prosecute any alcohol or drug abuse patient.[facility] Reason for Visit (unrecogniz ed section [...] BE BASED ON THE PRIMARY CLINICAL RECORDS. [facility] [employer] [facility]. provides no warranty or guarantee of the accuracy or completeness of information in this document.
[2023-07-18 07:33] LABS: Absolute Neutrophil Count 3.8 X10^3/uL (2.0-7.7); Basophil# 0.07 X10^3/uL; Eosinophil# 0.19 X10^3/uL; Eosinophils% 2.6 % (0-5); Hemoglobin 13.9 g/dL (12.0-15.0); Lymphocyte % 30.5 % (19-41); Mean Corp Hgb Conc 32.3 g/dL (32-36); Mean Corpuscular Volume 92.9 fL (81-99); Mean Platelet Vol. 9.9 fl (6.2-12.0); Monocyte# 0.94 X10^3/uL; NRBC Flagged by Analyzer 0 % (0-5); Neutrophil % 52.8 % (47-70); Platelet Count 414 K/mm3 (150-450); RBC Distribution Width CV 14.9 % (11.6-14.6); Red Blood Count 4.63 M/mm3 (4.2-5.4); White Blood Count 7.2 K/mm3 (4.4-11.0)
[2023-07-18 07:52] LABS: ALB/GLOB Ratio 0.8 RATIO (0.9-2.4); AST(SGOT) 22 U/L (15-37); Alanine Aminotransfer ALT/SGPT 14 U/L (13-56); Albumin, Serum 3.6 g/dL (3.2-5.0); Alkaline Phosphatase 120 U/L (45-117); Anion Gap 5 (5-15); BUN 18 mg/dL (7-18); BUN/Creat Ratio 17.5 RATIO (10-20); Calcium,Total 9.6 mg/dL (8.5-10.1); Chloride 106 mmol/L (98-107); Cholesterol 192 mg/dL (200); Creatinine, Serum 1.03 mg/dL (0.55-1.02); EST Glomerular Filtration Rate 55 mL/min (>60); Est Glom Filt Rate - Afr Amer 66 mL/min (>60); Globulin 4.7 g/dL (2.2-4.2); Glucose 115 mg/dL (74-106); High Density Lipoprotein 62 mg/dL; Potassium 3.8 mmol/L (3.5-5.1); Protein, Total 8.3 g/dL (6.4-8.2); Sodium Level 141 mmol/L (136-145); Triglycerides 114 mg/dL; Very Low Density Lipoprotein 23 mg/dL (5-40)
== END | disposition home or self-care (01) ==
LOC: LAB 06:27
PROVIDERS: PCP Family Medicine; Referring Provider Family Medicine; Visit Provider Family Medicine
DX: E78.5 Hyperlipidemia, unspecified (principal); Z51.81 Encounter for therapeutic drug level monitoring; R73.03 Prediabetes
CPT/HCPCS: 36415; 80053; 80061; 83036; 85025

== ENCOUNTER → 2023-09-03 | Outpatient (CLI) | payer MEDICARE, OTHER, SELFPAY ==
--- NOTE | 2023-09-03 07:27 | BI_ITS ---
MAMMOGRAPHY - BILATERAL SCREENING REASON FOR EXAM: Female, 83 years old. Routine annual screening examination. PERTINENT HISTORY: Non-contributory. Remote right excisional breast biopsy. TECHNIQUE: Digital bilateral breast valarie (3D mammographic acquisition) in the CC and MLO projections. 2-D mediolateral oblique (MLO) and craniocaudad (CC) views of both breasts were obtained. CAD: Full Field Digital Mammography with Computer Added Detection was performed. COMPARISON: Comparison is made with prior study dated August 30, 2022 and August 29, 2021. FINDINGS: Breast Composition: The breasts are almost entirely fatty. There are no dominant masses or suspicious calcifications. No other significant abnormalities are identified. There has been no significant change since the prior study. BI/SCRN MAMM (CAD)W/VALARIE BILAT IMPRESSION: Stable bilateral screening mammogram. Yearly follow-up mammogram recommended. (A) ASSESSMENT CATEGORY: BIRADS Category 1: Negative. A letter regarding these results will be sent to the patient by the facility within 30 days. Approximately 10% of breast cancers are not detected by mammography. A normal mammogram should not delay biopsy of a clinically suspicious abnormality. [id number] Electronically Signed: Shar Bundy MD at 9:18 EDT ,
--- NOTE | 2023-09-03 07:27 | BD_ITS ---
STUDY: DUAL ENERGY X-RAY ABSORPTIOMETRY / DXA REASON FOR EXAM: Female, 83 years old. [id number] TECHNIQUE: Bone Mineral Density (BMD) measurements of lumbar spine and bilateral hips were obtained. COMPARISON: Comparison is made with prior study dated August 29, 2021. FINDINGS: Lumbar Spine (L1-L4): g/cm2 (0.946) / T-score (-0.9) / Z-score (1.8) Findings are suggestive of normal bone density with a low fracture risk. Left Femur Total: g/cm2 (0.770) / T-score (-1.4) / Z-score (0.7) Left Femoral Neck: g/cm2 (0.605) / T-score (-2.2) / Z-score (0.2) Right Femur Total: g/cm2 (0.800) / T-score (-1.2) / Z-score (0.9) Right Femoral Neck: g/cm2 (0.700) / T-score (-1.3) / Z-score (1.0) The T-Scores on the most recent prior examination were: Lumbar Spine (L1-L4): There has been improvement of bone density since the previous examination. Left Femur Total: which represents an improvement of 0.8%. Right Femur Total: which represents a worsening of 1.1%. BD/Dexa Bone Density Study IMPRESSION: The patient is considered osteopenic as outlined below according to World Marvel Organization (WHO) criteria with a high fracture risk. There has been improvement of bone density since the previous examination. Reference Information: The T-score is the number of standard deviations above or below the standard which is normal for young adults at their peak bone mineral density. The World Health Organization (WHO) interprets the T-scores as follows: Above -1 Normal bone density Between -1 and -2.5 Osteopenia Equal to / or below -2.5 Osteoporosis As a practical clinical guideline, osteopenia may be graded as follows: Mild -1 through -1.5 Moderate -1.6 through -2.0 Severe -2.1 through -2.4 The Z-score is the number of standard deviations above or below age-matched controls. A Z-score of less than -1.5 would be considered abnormal. References: 1. NIH Osteoporosis and Related Bone Diseases www osteo.org 2. International Society for Clinical Densitometry www iscd.org 3. National Osteoporosis Foundation www nof.org Electronically Signed: Shar Bundy MD at 14:53 EDT ,
== END | disposition home or self-care (01) ==
LOC: OPBD 07:26
PROVIDERS: PCP Family Medicine; Referring Provider Family Medicine; Visit Provider Family Medicine
DX: Z12.31 Encounter for screening mammogram for malignant neoplasm of breast (principal); M81.0 Age-related osteoporosis without current pathological fracture
CPT/HCPCS: 77063; 77067; 77080

== ENCOUNTER 2023-10-02 08:22 | Outpatient (CLI) | payer MEDICARE, OTHER, SELFPAY ==
[2023-10-02] MEDS: Zoledronic Acid 5 MG 100 ML 300 MG IV (08:40)
[2023-10-02] MEDS: 0.9% NaCl Peripheral Flush Adult/Peds IV (08:40)
[2023-10-02 08:42] VITALS: BP 93/63; PULSE 82; RESP 16; TEMP 35.8; O2SAT 100; BMI 28.5
[2023-10-02 09:04] VITALS: BP 114/84; PULSE 76; RESP 16; TEMP 36.1; O2SAT 100
== END 2023-10-02 23:59 | disposition home or self-care (01) ==
LOC: MEDOUTP 08:23
PROVIDERS: PCP Family Medicine; Referring Provider Family Medicine; Visit Provider Family Medicine
DX: M81.0 Age-related osteoporosis without current pathological fracture (principal)
CPT/HCPCS: 96365; A4216; J3489

== ENCOUNTER → 2024-01-22 | Outpatient (CLI) | payer MEDICARE, OTHER, SELFPAY | END | disposition home or self-care (01) | LOC: LAB 12:06 | PROVIDERS: PCP Family Medicine; Referring Provider Family Medicine; Visit Provider Family Medicine | DX: R30.0 Dysuria (principal) | CPT/HCPCS: 87077; 87086; 87088; 87186 ==

== ENCOUNTER → 2024-01-23 | Outpatient (CLI) | payer MEDICARE, OTHER, SELFPAY ==
[2024-01-23 07:03] LABS: Basophil# 0.07 X10^3/uL; Basophil% 0.9 % (0-1); Eosinophil# 0.18 X10^3/uL; Eosinophils% 2.4 % (0-5); Hematocrit 42.4 % (37-47); Hemoglobin 13.8 g/dL (12.0-15.0); Lymphocyte % 29.9 % (19-41); Mean Corp Hgb Conc 32.5 g/dL (32-36); Mean Corpuscular Hgb 30.2 pg (27.0-32.0); Mean Corpuscular Volume 92.8 fL (81-99); Mean Platelet Vol. 9.6 fl (6.2-12.0); Monocyte# 0.94 X10^3/uL; Monocyte% 12.8 % (0-10); NRBC Flagged by Analyzer 0 % (0-5); Neutrophil # 3.96 X10^3/uL (2.7-7.7); Neutrophil % 53.7 % (47-70); Platelet Count 411 K/mm3 (150-450); RBC Distribution Width CV 14.7 % (11.6-14.6); RBC Distribution Width SD 49.9 fl (35.1-43.9); Red Blood Count 4.57 M/mm3 (4.2-5.4); White Blood Count 7.4 K/mm3 (4.4-11.0)
[2024-01-23 07:36] LABS: ALB/GLOB Ratio 0.7 RATIO (0.9-2.4); AST(SGOT) 24 U/L (15-37); Alanine Aminotransfer ALT/SGPT 15 U/L (13-56); Albumin, Serum 3.6 g/dL (3.2-5.0); Alkaline Phosphatase 107 U/L (45-117); Anion Gap 5 (5-15); BUN 16 mg/dL (7-18); BUN/Creat Ratio 16.1 RATIO (10-20); Calcium,Total 9.9 mg/dL (8.5-10.1); Chloride 107 mmol/L (98-107); Cholesterol 170 mg/dL (200); Creatinine, Serum 0.99 mg/dL (0.55-1.02); EST Glomerular Filtration Rate 57 mL/min (>60); Est Glom Filt Rate - Afr Amer 69 mL/min (>60); Free T3 2.6 pg/mL (2.18-3.98); Globulin 4.9 g/dL (2.2-4.2); Glucose 107 mg/dL (74-106); High Density Lipoprotein 67 mg/dL; Potassium 3.9 mmol/L (3.5-5.1); Protein, Total 8.5 g/dL (6.4-8.2); Sodium Level 140 mmol/L (136-145); T4 Free Direct 1.13 ng/dL (0.76-1.46); Triglycerides 95 mg/dL; Very Low Density Lipoprotein 19 mg/dL (5-40)
== END | disposition home or self-care (01) ==
LOC: LAB 06:14
PROVIDERS: PCP Family Medicine; Referring Provider Family Medicine; Visit Provider Family Medicine
DX: E03.9 Hypothyroidism, unspecified (principal); K74.5 Biliary cirrhosis, unspecified; E78.5 Hyperlipidemia, unspecified; Z51.81 Encounter for therapeutic drug level monitoring
CPT/HCPCS: 36415; 80053; 80061; 84439; 84443; 84481; 85025

== ENCOUNTER 2024-07-17 06:18 | Outpatient (CLI) | payer MEDICARE, OTHER, SELFPAY ==
[2024-07-17 07:10] LABS: Absolute Lymphocyte Count 1.65 X10^3/uL (0.83-4.51); Absolute Neutrophil Count 3.5 X10^3/uL (2.0-7.7); Basophil# 0.06 X10^3/uL; Eosinophil# 0.17 X10^3/uL; Eosinophils% 2.7 % (0-5); Hematocrit 39.5 % (37-47); Hemoglobin 13.5 g/dL (12.0-15.0); Lymphocyte # 1.65 X10^3/ul (0.83-4.51); Lymphocyte % 26.1 % (19-41); Mean Corp Hgb Conc 34.2 g/dL (32-36); Mean Corpuscular Hgb 31.3 pg (27.0-32.0); Mean Corpuscular Volume 91.4 fL (81-99); Mean Platelet Vol. 9.6 fl (6.2-12.0); Monocyte# 0.92 X10^3/uL; Monocyte% 14.6 % (0-10); NRBC Flagged by Analyzer 0 % (0-5); Neutrophil # 3.49 X10^3/uL (2.7-7.7); Neutrophil % 55.3 % (47-70); Platelet Count 374 K/mm3 (150-450); RBC Distribution Width CV 14.8 % (11.6-14.6); RBC Distribution Width SD 50.2 fl (35.1-43.9); Red Blood Count 4.32 M/mm3 (4.2-5.4); White Blood Count 6.3 K/mm3 (4.4-11.0)
[2024-07-17 08:32] LABS: ALB/GLOB Ratio 1.1 RATIO (0.9-2.4); AST(SGOT) 23 U/L (<=31); Alanine Aminotransfer ALT/SGPT 10 U/L (<=34); Albumin, Serum 4.2 g/dL (3.4-4.8); Alkaline Phosphatase 121 U/L (35-104); Anion Gap 13 (5-15); BUN 18 mg/dL (4-19); Calcium,Total 9.5 mg/dL (7.6-11.0); Chloride 105 mmol/L (98-108); Cholesterol 170 mg/dL (<=200); Creatinine, Serum 0.88 mg/dL (0.70-1.20); EST Glomerular Filtration Rate 66 (>60); Free T3 2.5 pg/mL (2.18-3.98); Globulin 3.7 g/dL (2.2-4.2); Glucose 105 mg/dL (70-99); High Density Lipoprotein 59 mg/dL; Low Density Lipoprotein Calc. 90 mg/dL; Potassium 4.1 mmol/L (3.3-5.1); Protein, Total 7.8 g/dL (5.9-8.4); Sodium Level 142 mmol/L (133-145); Total Bilirubin 0.48 mg/dL (0.00-1.30); Triglycerides 102 mg/dL; Very Low Density Lipoprotein 20 mg/dL (5-40); cholesterol:hdl ratio screen 2.87
[2024-07-18 08:08] LABS: AFP, Tumor Marker 2.2 ng/mL (0.0-8.7)
== END 2024-07-17 23:59 | disposition home or self-care (01) ==
LOC: LAB 06:20
PROVIDERS: PCP Family Medicine; Referring Provider Family Medicine; Visit Provider Family Medicine
DX: E03.9 Hypothyroidism, unspecified (principal); K74.60 Unspecified cirrhosis of liver; E78.5 Hyperlipidemia, unspecified; Z51.81 Encounter for therapeutic drug level monitoring
CPT/HCPCS: 36415; 80053; 80061; 82105; 84439; 84443; 84481; 85025

== ENCOUNTER → 2024-09-03 | Outpatient (CLI) | payer MEDICARE, OTHER, SELFPAY ==
--- NOTE | 2024-09-03 08:12 | BI_ITS ---
EXAM: SCRN MAMM (CAD)W/VALARIE BILAT DATE: 09/03/2024 CLINICAL HISTORY: F, Age 84 y/o , SCREENING BREAST CANCER RISK ASSESSMENT: Has not been calculated. TECHNIQUE: Bilateral screening digital breast tomosynthesis with 2D and 3D images. Computer aided detection. COMPARISON: Prior exam(s) dated 09/03/2023 and 08/30/2022. FINDINGS: TISSUE DENSITY: The breast tissue is almost entirely fatty. Bilateral Breast Mammographic Findings: There are no suspicious masses, suspicious clustered microcalcifications, architectural distortion or secondary signs of malignancy identified in either breast. Benign vascular calcifications, secretory type calcifications and round microcalcifications are seen in both breasts. BI/SCRN MAMM (CAD)W/VALARIE BILAT IMPRESSION: OVERALL FINAL ASSESSMENT: BIRADS 2 BENIGN FINDING RECOMMENDATION: Routine annual follow-up in 1 Year A letter with findings and recommendations will be mailed to the patient. Reading Location: [id number]
== END | disposition home or self-care (01) ==
LOC: OPBI 08:11
PROVIDERS: PCP Family Medicine; Referring Provider Family Medicine; Visit Provider Family Medicine
DX: Z12.31 Encounter for screening mammogram for malignant neoplasm of breast (principal)
CPT/HCPCS: 77063; 77067

== ENCOUNTER 2024-10-01 07:28 | Outpatient (CLI) | payer MEDICARE, OTHER, SELFPAY ==
[2024-10-01] MEDS: 0.9% NaCl Peripheral Flush Adult IV (07:48)
[2024-10-01] MEDS: 0.9% NaCl IVPB Med Flush (100mL) 15 ML IV (07:48)
[2024-10-01] MEDS: Zoledronic Acid 5 MG 100 ML 300 MG IV (07:49)
[2024-10-01 07:51] VITALS: BP 116/66; PULSE 75; RESP 16; TEMP 35.7; O2SAT 99; BMI 26.8
[2024-10-01 08:29] VITALS: BP 112/60; PULSE 69; RESP 16
== END 2024-10-01 23:59 | disposition home or self-care (01) ==
LOC: MEDOUTP 07:28
PROVIDERS: PCP Family Medicine; Referring Provider Family Medicine; Visit Provider Family Medicine
DX: M81.0 Age-related osteoporosis without current pathological fracture (principal)
CPT/HCPCS: 96365; A4216; J3489